=== PATIENT | male | born 1990 | race Caucasian/White ===

== ENCOUNTER 2016-12-21 21:38 | Emergency (ER) | payer BC ==
[2016-12-21] MEDS ORDERED: ASPIRIN 325 MG TAB PO STA (23:53)
[2016-12-22 00:30] LABS: Basophils # (A) 0.1 k/uL (0-0.2); Basophils % (A) 0 %; CH 30.7; CHCM 35.1; Eosinophils # (A) 0.3 k/uL (0-0.7); Eosinophils % (A) 3 %; HCT 41.9 % (39.0-53.0); HDW 2.92; HGB 14.2 gm/dL (13.0-17.5); Luc # (Auto) 0.22; Luc % (Auto) 2; Lymphocytes # (A) 3.7 k/uL (1.0-4.8); Lymphocytes % (A) 32 %; MCH 29.9 pg (25.0-35.0); MCV 87.9 fL (80.0-100.0); Mean Platelet Volume 6.6; Monocytes # (A) 0.5 k/uL (0-1.0); Monocytes % (A) 4 %; Neutrophils # (A) 6.8 k/uL (1.3-7.7); Neutrophils % (A) 59 %; RBC 4.77 m/uL (4.30-5.90); RDW 13.1 % (11.5-15.5); WBC 11.5 k/uL (3.8-10.6); WBC (Perox) 11.85
[2016-12-22 00:34] LABS: Anion Gap 14 mmol/L; Blood Urea Nitrogen 15 mg/dL (9-20); Calcium 9.6 mg/dL (8.4-10.2); Carbon Dioxide 22 mmol/L (22-30); Chloride 107 mmol/L (98-107); Glucose 78 mg/dL (74-99); Non-African American GFR(MDRD) >60 (>60 ml/min/1.73 sqM); Potassium 3.8 mmol/L (3.5-5.1); Sodium 143 mmol/L (137-145)
--- NOTE | 2016-12-22 00:38 | XR ---
EXAM: XR Chest, 2 Views. CLINICAL HISTORY: Reason: Chest pain TECHNIQUE: Frontal and lateral views of the chest. COMPARISON: No relevant prior studies available. FINDINGS: Lungs: Unremarkable. No consolidation. Pleural space: Unremarkable. No pneumothorax. Heart: Unremarkable. No cardiomegaly. Mediastinum: Unremarkable. Bones/joints: Unremarkable. IMPRESSION: Normal chest x-rays.
--- NOTE | 2016-12-22 00:43 | ED ---
General Adult HPI - General Chief complaint: Chest Pain Stated complaint: chest pain Source: patient Mode of arrival: ambulatory Limitations: no limitations - History of Present Illness Initial comments: 26-year-old male presented for evaluation of palpitations and epigastric discomfort that started suddenly this evening. 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 It continued to persist and were intense to the point where taking a deep inspiration was difficult. He comes this ED for further evaluation and states that his symptoms have decreased markedly and are barely noticeable at this point. He denies any chest pain, nausea, vomiting, fevers, chills, lightheadedness/ dizziness. - Related Data Home Medications Medication Instructions Recorded Confirmed Atorvastatin [Lipitor] 80 mg PO HS 12/21/16 12/21/16 Escitalopram [Lexapro] 10 mg PO HS 12/21/16 12/21/16 Escitalopram [Lexapro] 20 mg PO HS 12/21/16 12/21/16 Fenofibrate [Lofibra] 160 mg PO HS 12/21/16 12/21/16 Ibuprofen [Motrin] 600 mg PO Q6H PRN 12/21/16 12/21/16 Multivitamins, Thera [Multivitamin 1 tab PO HS 12/21/16 12/21/16 (formulary)] QUEtiapine FUMARATE [SEROquel] 25 mg PO HS 12/21/16 12/21/16 QUEtiapine FUMARATE [Seroquel Xr] 300 mg PO HS 12/21/16 12/21/16 busPIRone HCL 15 mg PO HS 12/21/16 12/21/16 Allergies Allergy/AdvReac Type Severity Reaction Status Date / Time Penicillins AdvReac Anaphylaxis Verified 12/21/16 23:15 sulfamethoxazole AdvReac Rash/Hives Verified 12/21/16 23:15 [From Bactrim] trimethoprim [From Bactrim] AdvReac Rash/Hives Verified 12/21/16 23:15 Review of Systems ROS Statement: Those systems with pertinent positive or pertinent negative responses have been documented in the HPI. ROS Other: All systems not noted in ROS Statement are negative. Constitutional: Denies: fever, chills Eyes: Denies: eye pain, eye discharge ENT: Denies: ear pain, throat pain Respiratory: Denies: cough, dyspnea, wheezes, hemoptysis Cardiovascular: Denies: chest pain, palpitations, dyspnea on exertion, orthopnea Gastrointestinal: Reports: abdominal pain (Epigastric). Denies: nausea, vomiting Genitourinary: Denies: urgency, dysuria Musculoskeletal: Denies: back pain, arthralgia, myalgia Skin: Denies: rash, lesions Neurological: Denies: headache, weakness Psychiatric: Denies: anxiety, depression Hematological/Lymphatic: Denies: easy bleeding, easy bruising Past Medical History Past Medical History: No Reported History History of Any Multi-Drug Resistant Organisms: None Reported Past Surgical History: No Surgical Hx Reported Past Psychological History: No Psychological Hx Reported, Anxiety, Depression Smoking Status: Never smoker Past Alcohol Use History: None Reported Past Drug Use History: None Reported General Exam Limitations: no limitations General appearance: alert, in no apparent distress Head exam: Present: atraumatic, normocephalic, normal inspection Eye exam: Present: normal appearance, PERRL, EOMI. Absent: scleral icterus, conjunctival injection, periorbital swelling ENT exam: Present: normal exam, mucous membranes moist Neck exam: Present: normal inspection. Absent: tenderness, meningismus, lymphadenopathy Respiratory exam: Present: normal lung sounds bilaterally. Absent: respiratory distress, wheezes, rales, rhonchi, stridor Cardiovascular Exam: Present: regular rate, normal rhythm, normal heart sounds. Absent: systolic murmur, diastolic murmur, rubs, gallop, clicks GI/Abdominal exam: Present: soft, normal bowel sounds. Absent: distended, tenderness, guarding, rebound, rigid Rectal exam: Present: deferred Extremities exam: Present: normal inspection, full ROM, normal capillary refill. Absent: tenderness, pedal edema, joint swelling, calf tenderness Back exam: Present: normal inspection Neurological exam: Present: alert, oriented X3, CN II-XII intact Psychiatric exam: Present: normal affect, normal mood Skin exam: Present: warm, dry, intact, normal color. Absent: rash Course Vital Signs 12/21/16 12/22/16 22:10 01:01 Temperature 97.9 F 98.6 F Pulse Rate 79 73 Respiratory 18 16 Rate Blood Pressure 128/77 130/88 O2 Sat by Pulse 99 97 Oximetry EKG Findings - EKG Comments: EKG Findings:: Normal sinus rhythm with a ventricular rate of 78, MILADYS 178, QRS 102, QT/QTC 390/444. Medical Decision Making - Medical Decision Making 26-year-old male presented for evaluation of palpitations and epigastric abdominal pain that started gradually while he was at work and continued to worsen. He states his symptoms are worse with deep inspiration eventually requiring him to rest and sit down. Symptoms have progressively resolved prior to coming to the ED. On physical examination the patient has no symptoms and his physical exam is benign. Labs revealed no significant abnormalities and the EKG showed no acute process as did the chest x-ray. The patient was informed of these results and through shared decision-making it was determined that he would be discharged with instructions to follow with his primary care physician but to return to this facility if his symptoms should worsen or persist. He acknowledged an understanding of this information and agreed with this plan of care. - Lab Data Result diagrams: 12/22/16 00:15 12/22/16 00:15 Lab Results 12/22/16 12/22/16 Range/Units 00:15 00:15 WBC 11.5 H (3.8-10.6) k/uL RBC 4.77 (4.30-5.90) m/uL Hgb 14.2 (13.0-17.5) gm/dL Hct 41.9 (39.0-53.0) % MCV 87.9 (80.0-100.0) fL MCH 29.9 (25.0-35.0) pg MCHC 34.0 (31.0-37.0) g/dL RDW 13.1 (11.5-15.5) % Plt Count 379 (150-450) k/uL Neutrophils % 59 % Lymphocytes % 32 % Monocytes % 4 % Eosinophils % 3 % Basophils % 0 % Neutrophils # 6.8 (1.3-7.7) k/uL Lymphocytes # 3.7 (1.0-4.8) k/uL Monocytes # 0.5 (0-1.0) k/uL Eosinophils # 0.3 (0-0.7) k/uL Basophils # 0.1 (0-0.2) k/uL Sodium 143 (137-145) mmol/L Potassium 3.8 (3.5-5.1) mmol/L Chloride 107 (98-107) mmol/L Carbon Dioxide 22 (22-30) mmol/L Anion Gap 14 mmol/L BUN 15 (9-20) mg/dL Creatinine 1.20 (0.66-1.25) mg/dL Est GFR (MDRD) Af Amer >60 (>60 ml/min/1.73 sqM) Est GFR (MDRD) Non-Af >60 (>60 ml/min/1.73 sqM) Glucose 78 (74-99) mg/dL Calcium 9.6 (8.4-10.2) mg/dL Disposition Clinical Impression: Epigastric pain, Palpitations Disposition: HOME SELF-CARE Condition: Stable Instructions: Abdominal Pain (ED), Chest Pain (ED) Referrals: Ye Bach MD [Primary Care Provider] - 1-2 days Time of Disposition: 00:43
[2016-12-22 01:09] VITALS: BP 130/88; PULSE 73; RESP 16; TEMP 98.6
== END 2016-12-22 01:03 | disposition home or self-care (01) ==
LOC: EC 21:38
DX: R10.13 Epigastric pain (principal); R00.2 Palpitations; R07.9 Chest pain, unspecified; F41.9 Anxiety disorder, unspecified; F32.9 Major depressive disorder, single episode, unspecified; Z79.899 Other long term (current) drug therapy; Z88.0 Allergy status to penicillin; Z88.2 Allergy status to sulfonamides
CPT/HCPCS: 36415; 71020; 80048; 85025; 93005; 99285

== ENCOUNTER 2017-12-08 22:10 | Observation (INO) | payer BC, OTHER ==
[2017-12-08] MEDS ORDERED: ONDANSETRON 4 MG/2 ML VIAL IVP STA (22:44)
[2017-12-08] MEDS ORDERED: PANTOPRAZOLE 40 MG/10 ML VIAL IVP STA (22:44)
[2017-12-08] MEDS ORDERED: SODIUM CHLORIDE 0.9% 1,000 ML IV STA (22:44)
--- NOTE | 2017-12-08 22:56 | ED ---
General Adult HPI - General Source: patient, RN notes reviewed Mode of arrival: ambulatory Limitations: no limitations <Rigo Valentin - Last Filed: 12/09/17 00:56> <Ankit Perez - Last Filed: 12/09/17 02:37> - General Chief complaint: Abdominal Pain Stated complaint: Abdominal Pain, NVD Time Seen by Provider: 12/08/17 22:34 - History of Present Illness Initial comments: Chief complaint history of present illness a 27-year-old male to complaint of her quadrant pain coming and going for the past 3 weeks. He reports he went to a local urgent care clinic and labs show an elevated bilirubin. For the last days been having nausea and vomiting. He continues the right upper quadrant pain. Denies fever. States his urine is darker than normal occasional loose stool. No antibiotics lately. (Rigo Valentin) - Related Data Home Medications Medication Instructions Recorded Confirmed Atorvastatin [Lipitor] 80 mg PO HS 12/21/16 12/08/17 Escitalopram [Lexapro] 10 mg PO HS 12/21/16 12/08/17 Escitalopram [Lexapro] 20 mg PO HS 12/21/16 12/08/17 QUEtiapine FUMARATE [SEROquel] 50 mg PO HS 12/21/16 12/08/17 QUEtiapine FUMARATE [Seroquel Xr] 300 mg PO HS 12/21/16 12/08/17 busPIRone HCL 7.5 mg PO BID 12/21/16 12/08/17 Gabapentin [Neurontin] 600 mg PO HS 12/08/17 12/08/17 Allergies Allergy/AdvReac Type Severity Reaction Status Date / Time Penicillins AdvReac Anaphylaxis Verified 12/08/17 22:27 sulfamethoxazole AdvReac Rash/Hives Verified 12/08/17 22:27 [From Bactrim] trimethoprim [From Bactrim] AdvReac Rash/Hives Verified 12/08/17 22:27 Review of Systems ROS Other: All systems not noted in ROS Statement are negative. <Rigo Valentin - Last Filed: 12/09/17 00:56> ROS Other: All systems not noted in ROS Statement are negative. <Ankit Perez - Last Filed: 12/09/17 02:37> ROS Statement: Those systems with pertinent positive or pertinent negative responses have been documented in the HPI. review of systems no headache or visual acuity changes no chest pain or shortness of breath. He has pain to the right upper quadrant that radiates around toward the right flank area. He reports eating causes pain. Nausea vomiting lately. No neuro deficits. All systems reviewed. Past medical problems none. Surgeries wisdom teeth. Family history multiple below gallbladder issues. No cancers. Patient has ALLERGIES to penicillin and sulfa. Patient using a cigarette. He drinks alcohol also rarely. (Rigo Valentin) Past Medical History Past Medical History: No Reported History History of Any Multi-Drug Resistant Organisms: None Reported Past Surgical History: No Surgical Hx Reported Past Psychological History: No Psychological Hx Reported, Anxiety, Depression Smoking Status: Never smoker Past Alcohol Use History: Rare Past Drug Use History: None Reported <Rigo Valentin - Last Filed: 12/09/17 00:56> General Exam Limitations: no limitations <Rigo Valentin - Last Filed: 12/09/17 00:56> <Ankit Perez - Last Filed: 12/09/17 02:37> - General Exam Comments Initial Comments: General: The patient is awake and alert, complain of biliary-type colic. He eatsthepaingetsworseespeciallybecausegreasyfattyfoods.Recentlybilirubinelevatedp eranoutsidelab.[id number] %[id number]/89. the patient was hydrated and blood pressure repeated, it was 125/80. Eye: Pupils are equal, round and reactive to light, extra-ocular movements are intact ; there is normal conjunctiva bilaterally. No signs of icterus. Ears, nose, mouth and throat: There are moist mucous membranes and no oral lesions. Neck: The neck is supple, there is no tenderness . Cardiovascular: There is a regular rate and rhythm. No murmur, rub or gallop is appreciated. Respiratory: Lungs are clear to auscultation, respirations are non-labored, breath sounds are equal. No wheezes, stridor, rales, or rhonchi. Gastrointestinal: tender with palpation to the right upper quadrant. Mild referred pain to the right upper quadrant. Positive Faith sign. Back: no back pain with palpation. Musculoskeletal: normal upper and lower extremities Neurological: no neuro deficits Skin: no rashes Psychiatric: Cooperative, (Rigo Valentin) Course <Rigo Valentin - Last Filed: 12/09/17 00:56> <Ankit Perez - Last Filed: 12/09/17 02:37> Vital Signs 12/08/17 12/09/17 12/09/17 22:18 01:03 02:00 Temperature 98.2 F Pulse Rate 100 79 94 Respiratory 20 20 18 Rate Blood Pressure 195/89 125/83 127/80 O2 Sat by Pulse 98 99 99 Oximetry Patient was reassessed at 2:30 AM, he reviewed his CT report with the patient CT report revealed that today in the region of firm right-sided retroperitoneum there is a large cystic mass that measures about 12 x 8 cm there is a minimal calcification at the margins no soft tissue component is visualized , vision has this pain ongoing for about a 4 weeks and it's interfering with his daily activities, his labs are reviewed the labs look unremarkable, I plan to admit him observation so he could see urology in the morning, he be admitted under Dr. Whiteheads service and the patient agrees with this plan, his pain is quite severe, we need to rule out any tumor (Ankit Perez) Medical Decision Making - Lab Data Result diagrams: 12/08/17 23:01 12/08/17 23:01 <Rigo Valentin - Last Filed: 12/09/17 00:56> - Lab Data Result diagrams: 12/08/17 23:01 12/08/17 23:01 <Ankit Perez - Last Filed: 12/09/17 02:37> - Medical Decision Making Medical decision making; the 27-year-old male here with rubber quadrant pain on again off again for 3 weeks. Nausea vomiting and loose stool. Pain is getting worse. Sees be aggravated by food. On exam positive Faith sign. Labs show white count 9.8 hemoglobin 14 hematocrit of 40 with a potassium 3.7. BUN 11 creatinine 1.1 with a GFR greater than 60. Glucose 99. Total bilirubin 1.0 which is normal. Amylase lipase normal limits. The patient reports he had labs done several weeks ago after his first attack and showed elevated bilirubin. Patient continues to have discomfort. X-ray of the abdomen was done and reviewed by radiologist his impression is there is no sign of intestinal obstruction or pneumoperitoneum. Fecal pattern is normal. There is no sign of a mass. There are no pathologic calcifications over the kidneys. Lung bases are clear. Fraction nonacute abdomen. As read by Dr. Sue Due to the patient's persistent discomfort, voluntary guarding, positive Faith' s and mild rebound pain to the right upper quadrant patient had CAT scan with IV and oral contrast. Final disposition will be determined by Dr. Perez ([facility]) - Lab Data Lab Results 12/08/17 12/08/17 12/08/17 Range/Units 23:01 23:01 23:01 WBC 9.8 (3.8-10.6) k/uL RBC 4.84 (4.30-5.90) m/uL Hgb 14.4 (13.0-17.5) gm/dL Hct 40.2 (39.0-53.0) % MCV 83.2 (80.0-100.0) fL MCH 29.7 (25.0-35.0) pg MCHC 35.7 (31.0-37.0) g/dL RDW 13.0 (11.5-15.5) % Plt Count 333 (150-450) k/uL Neutrophils % 64 % Lymphocytes % 28 % Monocytes % 5 % Eosinophils % 1 % Basophils % 0 % Neutrophils # 6.3 (1.3-7.7) k/uL Lymphocytes # 2.8 (1.0-4.8) k/uL Monocytes # 0.5 (0-1.0) k/uL Eosinophils # 0.1 (0-0.7) k/uL Basophils # 0.0 (0-0.2) k/uL Sodium 140 (137-145) mmol/L Potassium 3.7 (3.5-5.1) mmol/L Chloride 105 (98-107) mmol/L Carbon Dioxide 24 (22-30) mmol/L Anion Gap 11 mmol/L BUN 11 (9-20) mg/dL Creatinine 1.10 (0.66-1.25) mg/dL Est GFR (CKD-EPI)AfAm >90 (>60 ml/min/1.73 sqM) Est GFR (CKD-EPI)NonAf >90 (>60 ml/min/1.73 sqM) Glucose 99 (74-99) mg/dL Plasma Lactic Acid Isael 1.2 (0.7-2.0) mmol/L Calcium 9.9 (8.4-10.2) mg/dL Total Bilirubin 1.0 (0.2-1.3) mg/dL AST 30 (17-59) U/L ALT 50 (21-72) U/L Alkaline Phosphatase 131 H (38-126) U/L Total Protein 7.4 (6.3-8.2) g/dL Albumin 4.6 (3.5-5.0) g/dL Amylase 40 (30-110) U/L Lipase 66 (23-300) U/L Urine Color Urine Appearance (Clear) Urine pH (5.0-8.0) Ur Specific [place] (1.001-1.035) Urine Protein (Negative) Urine Glucose (UA) (Negative) Urine Ketones (Negative) Urine Blood (Negative) Urine Nitrite (Negative) Urine Bilirubin (Negative) Urine Urobilinogen (<2.0) mg/dL Ur Leukocyte Esterase (Negative) 12/09/17 Range/Units 00:57 WBC (3.8-10.6) k/uL RBC (4.30-5.90) m/uL Hgb (13.0-17.5) gm/dL Hct (39.0-53.0) % MCV (80.0-100.0) fL MCH (25.0-35.0) pg MCHC (31.0-37.0) g/dL RDW (11.5-15.5) % Plt Count (150-450) k/uL Neutrophils % % Lymphocytes % % Monocytes % % Eosinophils % % Basophils % % Neutrophils # (1.3-7.7) k/uL Lymphocytes # (1.0-4.8) k/uL Monocytes # (0-1.0) k/uL Eosinophils # (0-0.7) k/uL Basophils # (0-0.2) k/uL Sodium (137-145) mmol/L Potassium (3.5-5.1) mmol/L Chloride (98-107) mmol/L Carbon Dioxide (22-30) mmol/L Anion Gap mmol/L BUN (9-20) mg/dL Creatinine (0.66-1.25) mg/dL Est GFR (CKD-EPI)AfAm (>60 ml/min/1.73 sqM) Est GFR (CKD-EPI)NonAf (>60 ml/min/1.73 sqM) Glucose (74-99) mg/dL Plasma Lactic Acid [place]ael (0.7-2.0) mmol/L Calcium (8.4-10.2) mg/dL Total Bilirubin (0.2-1.3) mg/dL AST (17-59) U/L ALT (21-72) U/L Alkaline Phosphatase (38-126) U/L Total Protein (6.3-8.2) g/dL Albumin (3.5-5.0) g/dL Amylase (30-110) U/L Lipase (23-300) U/L Urine Color Yellow Urine Appearance Clear (Clear) Urine pH 6.0 (5.0-8.0) Ur Specific [place] 1.008 (1.001-1.035) Urine Protein Negative (Negative) Urine Glucose (UA) Negative (Negative) Urine Ketones Negative (Negative) Urine Blood Negative (Negative) Urine Nitrite Negative (Negative) Urine Bilirubin Negative (Negative) Urine Urobilinogen <2.0 (<2.0) mg/dL Ur Leukocyte Esterase Negative (Negative) Disposition <Rigo Valentin - Last Filed: 12/09/17 00:56> <Ankit Perez - Last Filed: 12/09/17 02:37> Clinical Impression: Multicystic dysplastic kidney Clinical Impression: (Ruled Out): Abdominal mass Disposition: ADMITTED IP TO THIS [facility] Condition: Good Referrals: Ye Bach MD [Primary Care Provider] - 1-2 days
[2017-12-08 23:22] LABS: ALT 50 U/L (21-72); AST 30 U/L (17-59); Albumin 4.6 g/dL (3.5-5.0); Alkaline Phosphatase 131 U/L (38-126); Amylase 40 U/L (30-110); Anion Gap 11 mmol/L; Blood Urea Nitrogen 11 mg/dL (9-20); Calcium 9.9 mg/dL (8.4-10.2); Carbon Dioxide 24 mmol/L (22-30); Chloride 105 mmol/L (98-107); Glucose 99 mg/dL (74-99); Lipase 66 U/L (23-300); Potassium 3.7 mmol/L (3.5-5.1); Sodium 140 mmol/L (137-145); Total Protein 7.4 g/dL (6.3-8.2)
[2017-12-08 23:30] LABS: Basophils % (A) 0 %; Eosinophils # (A) 0.1 k/uL (0-0.7); Eosinophils % (A) 1 %; HCT 40.2 % (39.0-53.0); HGB 14.4 gm/dL (13.0-17.5); Lymphocytes # (A) 2.8 k/uL (1.0-4.8); Lymphocytes % (A) 28 %; MCH 29.7 pg (25.0-35.0); MCHC 35.7 g/dL (31.0-37.0); MCV 83.2 fL (80.0-100.0); Mean Platelet Volume 7.5; Monocytes # (A) 0.5 k/uL (0-1.0); Monocytes % (A) 5 %; Neutrophils # (A) 6.3 k/uL (1.3-7.7); Neutrophils % (A) 64 %; Platelet Count 333 k/uL (150-450); RBC 4.84 m/uL (4.30-5.90); WBC 9.8 k/uL (3.8-10.6)
--- NOTE | 2017-12-08 23:33 | XR ---
EXAMINATION TYPE: XR abdomen 2V DATE OF EXAM: 12/08/2017 COMPARISON: NONE HISTORY: Abdominal pain TECHNIQUE: 3 views FINDINGS: There is no sign of intestinal obstruction or pneumoperitoneum. Fecal pattern is normal. Th ere is no sign of a mass. There are no pathologic calcifications over the kidneys. Lung bases are angelita ar. IMPRESSION: Nonacute abdomen.
[2017-12-08] MEDS ORDERED: IOHEXOL 350 MG/ML 25 ML BOTTLE (ORAL USE) PO PRN (23:54)
[2017-12-08] MEDS ORDERED: RX INFO: IV CONTRAST WAS GIVEN 1 EACH MISC MISCELLANE PRN (23:54)
[2017-12-09] MEDS ORDERED: KETOROLAC 30 MG/ML 1 ML VIAL IVP STA (00:56)
[2017-12-09 01:06] LABS: Appearance,Urine Clear (Clear); Bilirubin,Urine Negative (Negative); Blood,Urine Negative (Negative); Color,Urine Yellow; Glucose,Urine (UA) Negative (Negative); Ketones,Urine Negative (Negative); Leukocyte Esterase,Urine Negative (Negative); Nitrite,Urine Negative (Negative); Protein,Urine Negative (Negative); Specific Gravity,Urine 1.008 (1.001-1.035); Urobilinogen,Urine <2.0 mg/dL (<2.0)
--- NOTE | 2017-12-09 02:03 | CT ---
EXAMINATION TYPE: CT abdomen pelvis w con DATE OF EXAM: 12/09/2017 COMPARISON: NONE HISTORY: RUQ pain CT DLP: 1824.90 mGycm Automated exposure control for dose reduction was used. TECHNIQUE: Helical acquisition of images was performed from the lung bases through the pelvis. CONTRAST: Performed with Oral Contrast and with IV Contrast, patient injected with 100 mL of Omnipaque 300. FINDINGS: Lung bases are clear. There is no pleural effusion. Heart size is normal. Liver spleen pancreas gallbladder appear normal. Bile ducts are not dilated. The left kidney has norm al size and contour and normal contrast opacification. In the region of the right sided retroperitoneum there is a large cystic mass that measures 12 x 8 cm . There is minimal calcification at the margins. I see no soft tissue component. There is no retroperitoneal adenopathy. There is no ascites. Appendix appears normal. I see no intest inal wall thickening. There are no dilated loops. Bladder distends smoothly. There is no adrenal mass . The bony structures are intact. IMPRESSION: LARGE CYSTIC MASS IN THE ANTICIPATED REGION OF THE RIGHT KIDNEY IS PROBABLY DUE TO MULTICYSTIC DYSPLA STIC KIDNEY. LEFT KIDNEY APPEARS NORMAL WITH PROBABLY COMPENSATORY HYPERTROPHY. NORMAL APPENDIX. NO EVIDENCE OF A HERNIA. I DO NOT SEE A CAUSE FOR RIGHT LOWER QUADRANT PAIN.
[2017-12-09] MEDS ORDERED: NALOXONE 0.4 MG/ML 1 ML VIAL IV PRN (02:38)
[2017-12-09 03:23] VITALS: BMI 32.5
[2017-12-09] MEDS: MORPHINE SULFATE 4 MG/ML SYRINGE IV PRN ×3 (03:29→10:33)
[2017-12-09] MEDS: ONDANSETRON 4 MG/2 ML VIAL IVP PRN ×2 (03:34→17:38)
[2017-12-09] MEDS: QUEtiapine 50 MG TAB PO SCH ×2 (08:56→20:29)
[2017-12-09] MEDS: busPIRone HCl 5 MG TAB PO SCH ×2 (08:57→20:27)
--- NOTE | 2017-12-09 15:52 | HP ---
HISTORY AND PHYSICAL DATE OF ADMISSION: 12/09/2017 PRESENTING COMPLAINT: Abdominal pain, nausea. HISTORY OF PRESENTING COMPLAINT: This is a pleasant 27-year-old patient of Dr. Bach. Chronic stable medical conditions include hyperlipidemia, anxiety, depression. Patient for 3 to 4 weeks has been having slowly increasing abdominal pain, right upper quadrant and right flank area, he describes. Sometimes is is accompanied with nausea, vomiting. Patient did have a visit to the ER, and nothing was made out of it recently. Patient's pain has continued to get worse, including nausea, vomiting, and pain increased, and patient decided to come in. Denies any fever. No weight loss. Bowel pattern is normal. Patient was found to have a large cystic area on the right kidney and hence he is being admitted. Denies any fever. REVIEW OF SYSTEMS: CONSTITUTIONAL: Tired. HEENT: None. RESPIRATORY: None. CARDIOVASCULAR: None. GASTROINTESTINAL: As above. GENITOURINARY: None. MUSCULOSKELETAL: None. DERMATOLOGICAL: None. HEMATOLOGICAL: None. LYMPHATICS: None. PSYCHIATRY: Anxiety, depression. NEUROLOGICAL: None. PAST MEDICAL HISTORY: 1. Hyperlipidemia. 2. Anxiety. 3. Depression. PAST SURGICAL HISTORY: None. SOCIAL HISTORY: Lives with his aunt. Unemployed. Alcohol rarely. Denies smoking. FAMILY HISTORY: Gallstones. HOME MEDICATIONS: 1. Buspirone 7.5 p.o. b.i.d. 2. Seroquel XR 300 mg at bedtime. 3. Seroquel 50 mg p.o. at bedtime. 4. Neurontin 600 mg at bedtime. 5. Lexapro 30 mg p.o. at bedtime. 6. Lipitor 80 mg p.o. at bedtime. ALLERGIES: PENICILLIN and BACTRIM. PHYSICAL EXAMINATION: VITAL SIGNS ON PRESENTATION: Temperature 98.2, pulse 100, respiration 20. Blood pressure rechecked was 125/83, pulse ox 99% on room air. GENERAL APPEARANCE: Well built; BMI 32.5. Sitting up, slightly uncomfortable. EYES: Pupils equal. Conjunctivae normal. HEENT: External appearance of nose and ears normal. Oral cavity normal. NECK: JVD not raised. Mass not palpable. RESPIRATORY: Effort normal. Lungs are clear. CARDIOVASCULAR: First and second sounds normal. No edema. ABDOMEN: Right abdominal tenderness present. No guarding or rigidity. Not so much in renal angle. No mass palpable. Bowel sounds are present. LYMPHATIC: No lymph node palpable in neck or axillae. PSYCHIATRY: Alert and oriented x3. Mood and affect normal. NEUROLOGICAL: Pupils equal. Cranial nerves grossly intact. Power and sensation grossly intact. INVESTIGATIONS: White count 9.8, hemoglobin 14.4, potassium 3.7. BUN and creatinine are normal. UA is negative. Abdominal x-ray shows no signs of obstruction. CT scan of the abdomen and pelvis: right-sided retroperitoneal there is a large cystic mass measuring 12 x 8 cm with minimal calcification at the margins. No adenopathy. ASSESSMENT: 1. This is a patient who presents with a few days of increasing nausea, vomiting, not feeling well, right abdominal pain. Patient was found to have a 12 x 8 cm large cystic mass in the right kidney, multicystic. I am not sure if this explains all of his symptoms, and we still need at least urology and GI opinions. 2. Hyperlipidemia. 3. Anxiety not otherwise specified. 4. Depression not otherwise specified. PLAN: We will put the patient on a clear liquid diet. Home medications will be resumed. Consultation requests to GI and Urology are made. Care was discussed with the patient. We will put the patient on IV fluids. MMODL / IJN: [id number] /
[2017-12-09] MEDS: LACTATED RINGERS 1,000 ML IV SCH (17:15)
[2017-12-09] MEDS: ENOXAPARIN 40 MG/0.4 ML SYRINGE SQ SCH (17:15)
[2017-12-09] MEDS ORDERED: MORPHINE SULFATE 4 MG/ML SYRINGE IV ONE (17:45)
[2017-12-09] MEDS: MORPHINE ORAL SOLN 10 MG/5 ML CUP PO PRN (20:27)
[2017-12-09 20:57] VITALS: RESP 18
[2017-12-09] MEDS ORDERED: GABAPENTIN 300 MG CAP PO SCH (21:00)
[2017-12-09] MEDS ORDERED: ATORVASTATIN 80 MG TAB PO SCH (21:00)
[2017-12-09] MEDS ORDERED: ESCITALOPRAM 10 MG TAB PO SCH (21:00)
[2017-12-09] MEDS ORDERED: ESCITALOPRAM 20 MG TAB PO SCH (21:00)
[2017-12-09] MEDS ORDERED: QUEtiapine 50 MG TAB PO SCH (21:00)
[2017-12-10] MEDS: LACTATED RINGERS 1,000 ML IV SCH ×2 (02:47→11:59)
[2017-12-10] MEDS: MORPHINE ORAL SOLN 10 MG/5 ML CUP PO PRN (05:33)
[2017-12-10 09:05] VITALS: BP 123/84; PULSE 64; TEMP 97.8
[2017-12-10] MEDS: ENOXAPARIN 40 MG/0.4 ML SYRINGE SQ SCH (09:25)
[2017-12-10] MEDS: busPIRone HCl 5 MG TAB PO SCH (09:25)
[2017-12-10] MEDS: QUEtiapine 50 MG TAB PO SCH (09:25)
--- NOTE | 2017-12-10 10:58 | P.DS ---
Providers Date of admission: 12/09/17 02:38 Attending physician: Kam Torres Consults: 12/09/17 02:38 Consult Physician Stat Consulting Provider: Zeeshan Abrams Consult Reason/Comments: Multicycystic dysplastic kidney Do you want consulting provider notified?: Yes 12/09/17 11:08 Consult Physician Routine Consulting Provider: Anais Tabor Consult Reason/Comments: Abdominal Pain Do you want consulting provider notified?: Yes Primary care physician: Ye Bach [facility] Course: 27-year-old gentleman was admitted secondary to right-sided flank pain which was attributed to cyst in the region of the right kidney and absent right kidney. His pain improved. Patient was having nausea vomiting probably related to gastritis. Considering his unilateral kidney patient will not be started on proton pump inhibitor instead was started on Zantac. We'll advance the diet if he is able to tolerate the diet patient will be discharged today to follow with primary care physician Dr. Castillo and the urologist in [facility]. For rest of the other chronic medical problems please refer to Dr. Torres dictation of H&P from yesterday. Patient Condition at Discharge: Good Plan - Discharge Summary New Discharge Prescriptions: New Ranitidine HCl [Zantac] 150 mg PO BID #30 tab No Action Atorvastatin [Lipitor] 80 mg PO HS busPIRone HCL 7.5 mg PO BID Escitalopram [Lexapro] 20 mg PO HS Escitalopram [Lexapro] 10 mg PO HS QUEtiapine FUMARATE [Seroquel Xr] 300 mg PO HS QUEtiapine FUMARATE [SEROquel] 50 mg PO HS Gabapentin [Neurontin] 600 mg PO HS Discharge Medication List Atorvastatin [Lipitor] 80 mg PO HS 12/21/16 [History] Escitalopram [Lexapro] 10 mg PO HS 12/21/16 [History] Escitalopram [Lexapro] 20 mg PO HS 12/21/16 [History] QUEtiapine FUMARATE [SEROquel] 50 mg PO HS 12/21/16 [History] QUEtiapine FUMARATE [Seroquel Xr] 300 mg PO HS 12/21/16 [History] busPIRone HCL 7.5 mg PO BID 12/21/16 [History] Gabapentin [Neurontin] 600 mg PO HS 12/08/17 [History] Ranitidine HCl [Zantac] 150 mg PO BID #30 tab 12/10/17 [Rx] Follow up Appointment(s)/Referral(s): Ye Bach MD [Primary Care Provider] - 3 Days Discharge Disposition: HOME SELF-CARE
[2017-12-10] MEDS ORDERED: FAMOTIDINE 20 MG TAB PO STA (11:00)
--- NOTE | 2017-12-10 11:15 | P.GSCN ---
History of Present Illness Consult date: 12/09/17 Reason for Consult: Right multicystic dysplastic kidney. Requesting physician: Kam Torres History of present illness: The patient is a 27-year-old white male with an unremarkable urologic history. He presents with a several week history of nausea, vomiting, and diarrhea. He has recently experienced right-sided abdominal pain, radiating to the right flank. He denies gross hematuria. Review of Systems - Constitutional Denies chills, Denies fever - Gastrointestinal Reports diarrhea, Reports nausea, Reports vomiting - Genitourinary Denies dysuria, Denies hematuria Past Medical History Past Medical History: Hyperlipidemia History of Any Multi-Drug Resistant Organisms: None Reported Past Surgical History: No Surgical Hx Reported Additional Past Surgical History / Comment(s): [place] teeth removed Past Anesthesia/Blood Transfusion Reactions: No Reported Reaction Smoking Status: Former smoker - Past Family History Mother Additional Family Medical History / Comment(s): Gallstones Father Family Medical History: No Reported History Medications and Allergies Home Medications Medication Instructions Recorded Confirmed Type Atorvastatin [Lipitor] 80 mg PO HS 12/21/16 12/09/17 History Escitalopram [Lexapro] 10 mg PO HS 12/21/16 12/09/17 History Escitalopram [Lexapro] 20 mg PO HS 12/21/16 12/09/17 History QUEtiapine FUMARATE [SEROquel] 50 mg PO HS 12/21/16 12/09/17 History QUEtiapine FUMARATE [Seroquel Xr] 300 mg PO HS 12/21/16 12/09/17 History busPIRone HCL 7.5 mg PO BID 12/21/16 12/09/17 History Gabapentin [Neurontin] 600 mg PO HS 12/08/17 12/09/17 History Ranitidine HCl [Zantac] 150 mg PO BID #30 tab 12/10/17 Rx Allergies Allergy/AdvReac Type Severity Reaction Status Date / Time Penicillins AdvReac Anaphylaxis Verified 12/09/17 03:12 sulfamethoxazole AdvReac Rash/Hives Verified 12/09/17 03:12 [From Bactrim] trimethoprim [From Bactrim] AdvReac Rash/Hives Verified 12/09/17 03:12 Surgical - Exam Vital Signs Temp Pulse Resp BP Pulse Ox 98.2 F 100 20 195/89 98 12/08/17 22:18 12/08/17 22:18 12/08/17 22:18 12/08/17 22:18 12/08/17 22:18 - General well developed, well nourished, no distress - Respiratory normal respiratory effort - Abdomen Abdomen: soft, tender (Mild right upper quadrant tenderness), no masses, no guarding, no rigid, no rebound - Genitourinary normal penis with no external lesions, testicles non-tender - Psychiatric oriented to time, oriented to person, oriented to place, speech is normal, memory intact Results - Labs 12/08/17 23:01 12/08/17 23:01 Abnormal Lab Results - Last 24 Hours (Table) 12/08/17 Range/Units 23:01 Alkaline Phosphatase 131 H (38-126) U/L Diabetes panel 12/08/17 Range/Units 23:01 Sodium 140 (137-145) mmol/L Potassium 3.7 (3.5-5.1) mmol/L Chloride 105 (98-107) mmol/L Carbon Dioxide 24 (22-30) mmol/L BUN 11 (9-20) mg/dL Creatinine 1.10 (0.66-1.25) mg/dL Glucose 99 (74-99) mg/dL Calcium 9.9 (8.4-10.2) mg/dL AST 30 (17-59) U/L ALT 50 (21-72) U/L Alkaline Phosphatase 131 H (38-126) U/L Total Protein 7.4 (6.3-8.2) g/dL Albumin 4.6 (3.5-5.0) g/dL Calcium panel 12/08/17 Range/Units 23:01 Calcium 9.9 (8.4-10.2) mg/dL Albumin 4.6 (3.5-5.0) g/dL Pituitary panel 12/08/17 Range/Units 23:01 Sodium 140 (137-145) mmol/L Potassium 3.7 (3.5-5.1) mmol/L Chloride 105 (98-107) mmol/L Carbon Dioxide 24 (22-30) mmol/L BUN 11 (9-20) mg/dL Creatinine 1.10 (0.66-1.25) mg/dL Glucose 99 (74-99) mg/dL Calcium 9.9 (8.4-10.2) mg/dL Adrenal panel 12/08/17 Range/Units 23:01 Sodium 140 (137-145) mmol/L Potassium 3.7 (3.5-5.1) mmol/L Chloride 105 (98-107) mmol/L Carbon Dioxide 24 (22-30) mmol/L BUN 11 (9-20) mg/dL Creatinine 1.10 (0.66-1.25) mg/dL Glucose 99 (74-99) mg/dL Calcium 9.9 (8.4-10.2) mg/dL Total Bilirubin 1.0 (0.2-1.3) mg/dL AST 30 (17-59) U/L ALT 50 (21-72) U/L Alkaline Phosphatase 131 H (38-126) U/L Total Protein 7.4 (6.3-8.2) g/dL Albumin 4.6 (3.5-5.0) g/dL - Imaging CT scan - abdomen: report reviewed, image reviewed Assessment and Plan (1) Multicystic dysplastic kidney Current Visit: Yes Status: Acute Code(s): Q61.4 - RENAL DYSPLASIA SNOMED Code(s): 66218705 Plan: I had a lengthy discussion with the patient and his aunt. 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 Given that this is a congenital anomaly, and he has experienced symptoms for only several weeks, I am somewhat doubtful that this is the etiology of his symptoms. Furthermore, one would not expect a renal anomaly to cause GI symptoms, particularly diarrhea. Ultimately, if another source of his symptoms is not identified, he may benefit from a laparoscopic right nephrectomy. However, he understands that there is no guarantee that this would result in symptomatic resolution. Time with Patient: Greater than 30
--- NOTE | 2017-12-10 11:16 | P.PN ---
Progress Note - Text Progress Note Date: 12/10/17 Mr. azar is feeling better today. He currently denies nausea and diarrhea. His pain is improved. He is interested in undergoing removal of his anomalous right kidney. I explained to him that I would recommend this be done only if he remains symptomatic, and another etiology of his symptoms is not identified. He has indicated he would like it removed in any case. I suggested that this would best be performed laparoscopically, and he will follow up as needed.
== END 2017-12-10 13:42 | disposition home or self-care (01) ==
LOC: EC 22:10 → 3OBS 12-09 02:38
PROVIDERS: ADMIT Hospitalist; ATTEND Hospitalist
DX: Q61.4 Renal dysplasia (principal); Q60.0 Renal agenesis, unilateral; R17 Unspecified jaundice; R19.7 Diarrhea, unspecified; R11.2 Nausea with vomiting, unspecified; E78.5 Hyperlipidemia, unspecified; F32.9 Major depressive disorder, single episode, unspecified; F41.9 Anxiety disorder, unspecified; N28.89 Other specified disorders of kidney and ureter; Z79.899 Other long term (current) drug therapy; Z88.0 Allergy status to penicillin; Z88.2 Allergy status to sulfonamides; Z87.891 Personal history of nicotine dependence
CPT/HCPCS: 99285 ×2; 96374 ×2; 96375 ×5; 96372 ×2; 96376; 36415; 80053; 82150; 83605; 83690; 85025; 81003; 74019; 74177; G0378 ×2; J2270; J2405 ×2; J1650 ×2; J1885; Q9967; C9113

== ENCOUNTER 2017-12-29 17:54 | Emergency (ER) | payer OTHER ==
[2017-12-29] MEDS ORDERED: SODIUM CHLORIDE 0.9% 1,000 ML IV STA (18:33)
[2017-12-29] MEDS ORDERED: MORPHINE SULFATE 4MG/4ML SYRG IV STA (18:33)
[2017-12-29] MEDS ORDERED: PANTOPRAZOLE 40 MG/10 ML VIAL IVP STA (18:33)
[2017-12-29] MEDS ORDERED: ONDANSETRON 4 MG/2 ML VIAL IVP STA (18:33)
--- NOTE | 2017-12-29 18:35 | ED ---
Nausea/Vomiting/Diarrhea HPI - General Chief complaint: Nausea/Vomiting/Diarrhea Stated complaint: NVD Time Seen by Provider: 12/29/17 18:07 Source: patient, RN notes reviewed, old records reviewed Mode of arrival: ambulatory Limitations: no limitations - History of Present Illness Initial comments: This patient is a 27-year-old male with history of right cystic kidney presents emergency Department chief complaint of 1 day of intractable nausea and vomiting. Said a couple episodes of diarrhea today. He complains of some right -sided abdominal pain which has been similar to all of his previous pain related to a cyst. Patient reports he is scheduled to have surgery for the cyst removal on January 25. He reports that his urologist is Dr. Hermosillo at [facility]. He states that he's had no fevers or chills. He denies any chest pain or shortness breath. He reports has not been able to tolerate his medications. He did take 1 Zofran prior to coming here but he did vomit that up as well. - Related Data Home Medications Medication Instructions Recorded Confirmed Atorvastatin [Lipitor] 80 mg PO HS 12/21/16 12/29/17 Escitalopram [Lexapro] 10 mg PO HS 12/21/16 12/29/17 Escitalopram [Lexapro] 20 mg PO HS 12/21/16 12/29/17 QUEtiapine FUMARATE [SEROquel] 50 mg PO HS 12/21/16 12/29/17 QUEtiapine FUMARATE [Seroquel Xr] 300 mg PO HS 12/21/16 12/29/17 busPIRone HCL 7.5 mg PO BID 12/21/16 12/29/17 Gabapentin [Neurontin] 600 mg PO HS 12/08/17 12/29/17 Gabapentin [Neurontin] 300 mg PO TID 12/29/17 12/29/17 Previous Rx's Medication Instructions Recorded Ranitidine HCl [Zantac] 150 mg PO BID #30 tab 12/10/17 Ondansetron Odt [Zofran Odt] 4 mg PO Q8HR PRN #12 tab 12/29/17 Allergies Allergy/AdvReac Type Severity Reaction Status Date / Time Penicillins Allergy Anaphylaxis Verified 12/29/17 18:43 Sulfa (Sulfonamide Allergy Rash/Hives Verified 12/29/17 18:43 Antibiotics) sulfamethoxazole Allergy Rash/Hives Verified 12/29/17 18:43 [From Bactrim] trimethoprim [From Bactrim] Allergy Rash/Hives Verified 12/29/17 18:43 Review of Systems ROS Statement: Those systems with pertinent positive or pertinent negative responses have been documented in the HPI. ROS Other: All systems not noted in ROS Statement are negative. Past Medical History Past Medical History: Hyperlipidemia History of Any Multi-Drug Resistant Organisms: None Reported Past Surgical History: No Surgical Hx Reported Additional Past Surgical History / Comment(s): [place] teeth removed Past Anesthesia/Blood Transfusion Reactions: No Reported Reaction Past Psychological History: Anxiety, Depression Smoking Status: Former smoker Past Alcohol Use History: Occasional Past Drug Use History: None Reported - Past Family History Mother Additional Family Medical History / Comment(s): Gallstones Father Family Medical History: No Reported History General Exam - General Exam Comments Initial Comments: This is a 27-year-old male. Patient appears in moderate discomfort. Limitations: no limitations General appearance: alert, in no apparent distress Head exam: Present: atraumatic, normocephalic, normal inspection Eye exam: Present: normal appearance, PERRL, EOMI. Absent: scleral icterus, conjunctival injection, periorbital swelling ENT exam: Present: normal exam, mucous membranes moist Neck exam: Present: normal inspection. Absent: tenderness, meningismus, lymphadenopathy Respiratory exam: Present: normal lung sounds bilaterally. Absent: respiratory distress, wheezes, rales, rhonchi, stridor Cardiovascular Exam: Present: regular rate, normal rhythm, normal heart sounds. Absent: systolic murmur, diastolic murmur, rubs, gallop, clicks GI/Abdominal exam: Present: soft, tenderness (Right lower quadrant and left lower quadrant tenderness.), normal bowel sounds. Absent: distended, guarding, rebound, rigid Extremities exam: Present: normal inspection, full ROM, normal capillary refill. Absent: tenderness, pedal edema, joint swelling, calf tenderness Back exam: Present: normal inspection Neurological exam: Present: alert, oriented X3, CN II-XII intact Psychiatric exam: Present: normal affect, normal mood Skin exam: Present: warm, dry, intact, normal color. Absent: rash Course Vital Signs 12/29/17 18:05 Temperature 98.5 F Pulse Rate 89 Respiratory 18 Rate Blood Pressure 138/83 O2 Sat by Pulse 98 Oximetry - Reevaluation(s) Reevaluation #1: 12/29/17 21:49 She was reevaluated after seeing more fluids. He is nontender. Pain is been chronic liters to assist. Discussed that a CT on pelvis was reviewed and normal. Discussed that the white blood cell count is likely elevated due to his vomiting and dry heaving. Discussion is follow-up with his primary care provider tomorrow for recheck blood work and testing. Discussed return parameters. Medical Decision Making - Medical Decision Making This patient is a 27-year-old male present emergency Department chief complaint of draining episodes and some abdominal pain. Use otherwise feeling well yesterday. Patient's labwork was reviewed and it showed elevated white blood count 19,000. He is afebrile. With it is some right lower quadrant left lower quadrant tenderness. Did have 2 episodes of diarrhea today too. Patient underwent CT abdomen and pelvis. CT of pelvis does show the renal cyst which is stable. No other abnormality's. No appendicitis or diverticulitis colitis. Patient informed of these results. Discussed this with both LIKELY related to the dry heaving. His nausea subsided he reports he otherwise feels somewhat better to go home. Discussed clear liquid diet for the next 2 days. Discussed follow-up with primary care provider for repeat testing in 1 day. - Lab Data Result diagrams: 12/29/17 18:45 12/29/17 18:45 Lab Results 12/29/17 12/29/17 12/29/17 Range/Units 18:45 18:45 18:45 WBC 19.1 H (3.8-10.6) k/uL RBC 5.28 (4.30-5.90) m/uL Hgb 15.9 (13.0-17.5) gm/dL Hct 44.5 (39.0-53.0) % MCV 84.2 (80.0-100.0) fL MCH 30.2 (25.0-35.0) pg MCHC 35.8 (31.0-37.0) g/dL RDW 13.1 (11.5-15.5) % Plt Count 450 (150-450) k/uL Neutrophils % 82 % Lymphocytes % 13 % Monocytes % 4 % Eosinophils % 1 % Basophils % 0 % Neutrophils # 15.6 H (1.3-7.7) k/uL Lymphocytes # 2.4 (1.0-4.8) k/uL Monocytes # 0.7 (0-1.0) k/uL Eosinophils # 0.2 (0-0.7) k/uL Basophils # 0.1 (0-0.2) k/uL Hyperchromasia Slight PT 9.8 (9.0-12.0) sec INR 1.0 (<1.2) APTT 21.4 L (22.0-30.0) sec Sodium 145 (137-145) mmol/L Potassium 4.6 (3.5-5.1) mmol/L Chloride 108 H (98-107) mmol/L Carbon Dioxide 16 L (22-30) mmol/L Anion Gap 21 mmol/L BUN 15 (9-20) mg/dL Creatinine 1.20 (0.66-1.25) mg/dL Est GFR (CKD-EPI)AfAm >90 (>60 ml/min/1.73 sqM) Est GFR (CKD-EPI)NonAf 81 (>60 ml/min/1.73 sqM) Glucose 96 (74-99) mg/dL Calcium 10.7 H (8.4-10.2) mg/dL Total Bilirubin 0.7 (0.2-1.3) mg/dL AST 34 (17-59) U/L ALT 65 (21-72) U/L Alkaline Phosphatase 155 H (38-126) U/L Total Protein 8.3 H (6.3-8.2) g/dL Albumin 5.1 H (3.5-5.0) g/dL Amylase 55 (30-110) U/L Lipase 54 (23-300) U/L Urine Color Urine Appearance (Clear) Urine pH (5.0-8.0) Ur Specific Olga (1.001-1.035) Urine Protein (Negative) Urine Glucose (UA) (Negative) Urine Ketones (Negative) Urine Blood (Negative) Urine Nitrite (Negative) Urine Bilirubin (Negative) Urine Urobilinogen (<2.0) mg/dL Ur Leukocyte Esterase (Negative) Urine RBC (0-5) /hpf Urine WBC (0-5) /hpf Ur Squamous Epith Cells (0-4) /hpf Urine Bacteria (None) /hpf Hyaline Casts (0-2) /lpf Urine Mucus (None) /hpf 12/29/17 Range/Units 18:54 WBC (3.8-10.6) k/uL RBC (4.30-5.90) m/uL Hgb (13.0-17.5) gm/dL Hct (39.0-53.0) % MCV (80.0-100.0) fL MCH (25.0-35.0) pg MCHC (31.0-37.0) g/dL RDW (11.5-15.5) % Plt Count (150-450) k/uL Neutrophils % % Lymphocytes % % Monocytes % % Eosinophils % % Basophils % % Neutrophils # (1.3-7.7) k/uL Lymphocytes # (1.0-4.8) k/uL Monocytes # (0-1.0) k/uL Eosinophils # (0-0.7) k/uL Basophils # (0-0.2) k/uL Hyperchromasia PT (9.0-12.0) sec INR (<1.2) APTT (22.0-30.0) sec Sodium (137-145) mmol/L Potassium (3.5-5.1) mmol/L Chloride (98-107) mmol/L Carbon Dioxide (22-30) mmol/L Anion Gap mmol/L BUN (9-20) mg/dL Creatinine (0.66-1.25) mg/dL Est GFR (CKD-EPI)AfAm (>60 ml/min/1.73 sqM) Est GFR (CKD-EPI)NonAf (>60 ml/min/1.73 sqM) Glucose (74-99) mg/dL Calcium (8.4-10.2) mg/dL Total Bilirubin (0.2-1.3) mg/dL AST (17-59) U/L ALT (21-72) U/L Alkaline Phosphatase (38-126) U/L Total Protein (6.3-8.2) g/dL Albumin (3.5-5.0) g/dL Amylase (30-110) U/L Lipase (23-300) U/L Urine Color Yellow Urine Appearance Cloudy (Clear) Urine pH 5.5 (5.0-8.0) Ur Specific Olga 1.025 (1.001-1.035) Urine Protein 1+ H (Negative) Urine Glucose (UA) Negative (Negative) Urine Ketones Negative (Negative) Urine Blood Trace H (Negative) Urine Nitrite Negative (Negative) Urine Bilirubin Negative (Negative) Urine Urobilinogen <2.0 (<2.0) mg/dL Ur Leukocyte Esterase Trace H (Negative) Urine RBC 3 (0-5) /hpf Urine WBC 11 H (0-5) /hpf Ur Squamous Epith Cells 2 (0-4) /hpf Urine Bacteria Rare H (None) /hpf Hyaline Casts 23 H (0-2) /lpf Urine Mucus Many H (None) /hpf - Radiology Data Radiology results: report reviewed CT abdomen shows no acute abdominal process. Congenital abnormal right kidney replaced with a cystic structure. Disposition Clinical Impression: Multicystic dysplastic kidney, Nausea & vomiting Disposition: HOME SELF-CARE Condition: Good Instructions: Acute Nausea and Vomiting (ED) Additional Instructions: Patient advised to follow-up promptly with primary care provider. Clear liquid diet. Return to emergency department if any alarming signs or symptoms occur. Admitted repeat her blood work with primary care provider within the next 1-2 days. Prescriptions: Ondansetron Odt [Zofran Odt] 4 mg PO Q8HR PRN #12 tab PRN Reason: Nausea Referrals: Ye Bach MD [Primary Care Provider] - 1-2 days Time of Disposition: 21:51
[2017-12-29 18:56] LABS: Basophils # (A) 0.1 k/uL (0-0.2); Basophils % (A) 0 %; Eosinophils # (A) 0.2 k/uL (0-0.7); Eosinophils % (A) 1 %; HCT 44.5 % (39.0-53.0); HGB 15.9 gm/dL (13.0-17.5); Hyperchromasia Slight; Lymphocytes # (A) 2.4 k/uL (1.0-4.8); Lymphocytes % (A) 13 %; MCH 30.2 pg (25.0-35.0); MCHC 35.8 g/dL (31.0-37.0); MCV 84.2 fL (80.0-100.0); Mean Platelet Volume 6.9; Monocytes # (A) 0.7 k/uL (0-1.0); Monocytes % (A) 4 %; Neutrophils # (A) 15.6 k/uL (1.3-7.7); Neutrophils % (A) 82 %; Platelet Count 450 k/uL (150-450); RBC 5.28 m/uL (4.30-5.90); RDW 13.1 % (11.5-15.5); WBC 19.1 k/uL (3.8-10.6)
[2017-12-29 19:08] LABS: ALT 65 U/L (21-72); AST 34 U/L (17-59); Albumin 5.1 g/dL (3.5-5.0); Alkaline Phosphatase 155 U/L (38-126); Amylase 55 U/L (30-110); Anion Gap 21 mmol/L; Blood Urea Nitrogen 15 mg/dL (9-20); Calcium 10.7 mg/dL (8.4-10.2); Carbon Dioxide 16 mmol/L (22-30); Chloride 108 mmol/L (98-107); Glucose 96 mg/dL (74-99); Lipase 54 U/L (23-300); Potassium 4.6 mmol/L (3.5-5.1); Sodium 145 mmol/L (137-145); Total Bilirubin 0.7 mg/dL (0.2-1.3); Total Protein 8.3 g/dL (6.3-8.2)
[2017-12-29 19:11] LABS: Partial Thromboplastin Time 21.4 sec (22.0-30.0); Prothrombin Time 9.8 sec (9.0-12.0)
[2017-12-29 19:16] LABS: Appearance,Urine Cloudy (Clear); Bacteria,Urine Rare /hpf; Bilirubin,Urine Negative (Negative); Blood,Urine Trace (Negative); Color,Urine Yellow; Glucose,Urine (UA) Negative (Negative); Hyaline Casts,Urine 23 /lpf (0-2); Ketones,Urine Negative (Negative); Leukocyte Esterase,Urine Trace (Negative); Mucus,Urine Many /hpf; Nitrite,Urine Negative (Negative); PH, Urine 5.5 (5.0-8.0); Protein,Urine 1+ (Negative); RBC,Urine 3 /hpf (0-5); Specific Gravity,Urine 1.025 (1.001-1.035); Squamous Epithelial Cell,Urine 2 /hpf (0-4); Urobilinogen,Urine <2.0 mg/dL (<2.0); WBC,Urine 11 /hpf (0-5)
[2017-12-29] MEDS ORDERED: RX INFO: IV CONTRAST WAS GIVEN 1 EACH MISC MISCELLANE PRN (19:20)
--- NOTE | 2017-12-29 20:08 | CT ---
EXAMINATION TYPE: CT abdomen pelvis w con DATE OF EXAM: 12/29/2017 COMPARISON: NONE INDICATION: Nausea, vomiting and diarrhea DLP: 1684 mGycm, Automated exposure control for dose reduction was used. CONTRAST: 100 mL of Isovue 300. Study performed without Oral Contrast TECHNIQUE: Axial images were obtained from above the diaphragm to the pubic rami in the axial plane a t 5 mm thick sections. Reconstructed images are reviewed on the computer in the coronal plane. FINDINGS: Limited CT sections are obtained the lung bases. The lung bases are clear. CT ABDOMEN: Liver: Normal Spleen: Normal Pancreas: Normal Adrenal glands: The adrenal glands are normal. Gallbladder: Normal Kidneys: Right kidney appears to be essentially absent. This is replaced by a large cystlike structur e measuring 8.6 cm and 0 Hounsfield units. Left kidney appears normal without masses cysts or hydrone phrosis. No renal stones are identified. Delayed images obtained through the kidney which appears unr emarkable. Aorta: Normal Inferior vena cava: Normal. CT PELVIS: Loops of bowel within the abdomen and pelvis are normal. There are loops of bowel which are incom pletely distended or lack oral contrast limiting their evaluation. Appendix: Normal as visualized. Urinary bladder: Normal. Genitourinary structures: Prostate is slightly prominent Osseous structures: No suspicious lytic or sclerotic lesions. IMPRESSIONS: 1. No acute abdominal process. 2. Congenitally abnormal right kidney replaced with a cystic structure.
[2017-12-29] MEDS ORDERED: SODIUM CHLORIDE 0.9% 1,000 ML IV ONE (20:55)
[2017-12-29] MEDS ORDERED: KETOROLAC 30 MG/ML 1 ML VIAL IVP STA (20:55)
[2017-12-29] MEDS ORDERED: ONDANSETRON 4 MG ODT STARTER PACK 2 TAB BTL PO STA (21:57)
[2017-12-29 22:35] VITALS: RESP 16
[2017-12-29 22:37] VITALS: BP 132/80; PULSE 82; TEMP 98.7
== END 2017-12-29 22:36 | disposition home or self-care (01) ==
LOC: EC 17:54
DX: Q61.4 Renal dysplasia (principal); R11.2 Nausea with vomiting, unspecified; R19.7 Diarrhea, unspecified; R10.31 Right lower quadrant pain; R10.32 Left lower quadrant pain; E78.5 Hyperlipidemia, unspecified; F32.9 Major depressive disorder, single episode, unspecified; F41.9 Anxiety disorder, unspecified; Z87.891 Personal history of nicotine dependence; Z79.899 Other long term (current) drug therapy; Z88.0 Allergy status to penicillin; Z88.2 Allergy status to sulfonamides
CPT/HCPCS: 36415; 80053; 82150; 83690; 85025; 85610; 85730; 81001; 74177; 99285; 96374; 96375 ×3; 96361 ×2; J2405; J1885; S0119; C9113; Q9967; J2270

== ENCOUNTER 2019-06-30 10:00 | Emergency (ER) | payer OTHER ==
[2019-06-30 10:08] VITALS: TEMP 98
[2019-06-30] MEDS ORDERED: IPRATROPIUM-ALBUTEROL 3 ML NEB INHALATION STA (10:13)
--- NOTE | 2019-06-30 10:15 | ED ---
URI HPI - General Chief Complaint: Upper Respiratory Infection Stated Complaint: congestion, SOB Time Seen by Provider: 06/30/19 10:10 Source: patient, RN notes reviewed Mode of arrival: ambulatory Limitations: no limitations - History of Present Illness Initial Comments: 29-year-old male presents emergency Department chief complaint of cough congestion shortness of breath. Patient has been sick for last 1 week. Patient states it initially started nasal congestion. Patient states he has a productive cough at this time. Patient states he feels short of breath he does admit that he uses in a cigarette butt denies any tobacco use. Patient states nasal congestion has improved states that he does feel short of breath. No history of asthma. Patient denies any [id number] cough and cold medications. - Related Data Home Medications Medication Instructions Recorded Confirmed Atorvastatin [Lipitor] 80 mg PO HS 12/21/16 12/29/17 Escitalopram [Lexapro] 10 mg PO HS 12/21/16 12/29/17 Escitalopram [Lexapro] 20 mg PO HS 12/21/16 12/29/17 QUEtiapine FUMARATE [SEROquel] 50 mg PO HS 12/21/16 12/29/17 QUEtiapine FUMARATE [Seroquel Xr] 300 mg PO HS 12/21/16 12/29/17 busPIRone HCL 7.5 mg PO BID 12/21/16 12/29/17 Gabapentin [Neurontin] 600 mg PO HS 12/08/17 12/29/17 Gabapentin [Neurontin] 300 mg PO TID 12/29/17 12/29/17 Previous Rx's Medication Instructions Recorded Ranitidine HCl [Zantac] 150 mg PO BID #30 tab 12/10/17 Ondansetron Odt [Zofran Odt] 4 mg PO Q8HR PRN #12 tab 12/29/17 Albuterol Sulfate [Proair Hfa] 1 - 2 puff INHALATION Q4HR PRN #1 06/30/19 inhaler Azithromycin [Zithromax Z-pack] 0 mg PO DIRECTED #1 pack 06/30/19 predniSONE 50 mg PO DAILY #5 tab 06/30/19 Allergies Allergy/AdvReac Type Severity Reaction Status Date / Time Penicillins Allergy Anaphylaxis Verified 12/29/17 18:43 Sulfa (Sulfonamide Allergy Rash/Hives Verified 12/29/17 18:43 Antibiotics) sulfamethoxazole Allergy Rash/Hives Verified 12/29/17 18:43 [From Bactrim] trimethoprim [From Bactrim] Allergy Rash/Hives Verified 12/29/17 18:43 Review of Systems ROS Statement: Those systems with pertinent positive or pertinent negative responses have been documented in the HPI. ROS Other: All systems not noted in ROS Statement are negative. 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 History of Any Multi-Drug Resistant Organisms: None Reported Past Surgical History: No Surgical Hx Reported Additional Past Surgical History / Comment(s): [place] teeth removed, right nephrectomy Past Anesthesia/Blood Transfusion Reactions: No Reported Reaction Past Psychological History: Anxiety, Depression Smoking Status: Former smoker Past Alcohol Use History: Occasional Past Drug Use History: None Reported - Past Family History Mother Additional Family Medical History / Comment(s): Gallstones Father Family Medical History: No Reported History General Exam Limitations: no limitations General appearance: alert, in no apparent distress Head exam: Present: atraumatic, normocephalic, normal inspection Eye exam: Present: normal appearance, PERRL, EOMI. Absent: scleral icterus, conjunctival injection, periorbital swelling ENT exam: Present: normal exam, normal oropharynx, mucous membranes moist, TM's normal bilaterally, normal external ear exam Neck exam: Present: normal inspection, full ROM. Absent: tenderness, meningismus, lymphadenopathy Respiratory exam: Present: wheezes (Diffuse). Absent: normal lung sounds bilaterally, respiratory distress, rales, rhonchi, stridor Cardiovascular Exam: Present: regular rate, normal rhythm, normal heart sounds. Absent: systolic murmur, diastolic murmur, rubs, gallop, clicks Back exam: Absent: CVA tenderness (R), CVA tenderness (L) Neurological exam: Present: alert Skin exam: Present: warm, dry, intact, normal color. Absent: rash Course Vital Signs 06/30/19 06/30/19 10:05 10:30 Temperature 98.0 F Pulse Rate 90 90 Respiratory 18 Rate Blood Pressure 146/96 O2 Sat by Pulse 99 Oximetry Medical Decision Making - Medical Decision Making 29-year-old male present emergency department with chief complaint of cough congestion. Patient has not been feeling well for a while. Chest x-ray reviewed shows no evidence of infiltrate. Patient will be treated with azithromycin and prednisone, given inhaler at this time. Disposition Clinical Impression: Acute bronchitis with bronchospasm Disposition: HOME SELF-CARE Condition: Stable Instructions (If sedation given, give patient instructions): Acute Bronchitis (ED) Additional Instructions: Please return to the Emergency Department if symptoms worsen or any other concerns. Prescriptions: predniSONE 50 mg PO DAILY #5 tab Albuterol Sulfate [Proair Hfa] 1 - 2 puff INHALATION Q4HR PRN #1 inhaler PRN Reason: difficulty in breathing Azithromycin [Zithromax Z-pack] 0 mg PO DIRECTED #1 pack Is patient prescribed a controlled substance at d/c from ED?: No Referrals: Ye Bach MD [Primary Care Provider] - 1-2 days Time of Disposition: 10:28
--- NOTE | 2019-06-30 10:23 | XR ---
EXAMINATION TYPE: XR chest 2V DATE OF EXAM: 06/30/2019 HISTORY: SOB, cough. REFERENCE: Previous study dated 12/22/2016. FINDINGS: The lungs remain clear. Pleural space are clear. Heart size is within normal limits. IMPRESSION: NO ACUTE CARDIOTHORACIC ABNORMALITY.
[2019-06-30] MEDS ORDERED: cefTRIAXone 1,000 MG VIAL (IM USE) IM STA (10:33)
[2019-06-30 10:52] VITALS: BP 140/88; PULSE 88; RESP 16
== END 2019-06-30 10:51 | disposition home or self-care (01) ==
LOC: EC 10:00
DX: J20.9 Acute bronchitis, unspecified (principal); E78.5 Hyperlipidemia, unspecified; F41.9 Anxiety disorder, unspecified; F32.9 Major depressive disorder, single episode, unspecified; Z79.899 Other long term (current) drug therapy; Z88.0 Allergy status to penicillin; Z88.2 Allergy status to sulfonamides; Z87.891 Personal history of nicotine dependence
CPT/HCPCS: 94640; 71046; 96372; 99283; J0696

== ENCOUNTER 2019-11-11 16:12 | Emergency (ER) | payer OTHER ==
--- NOTE | 2019-11-11 17:17 | ED ---
Back Pain HPI - General Chief Complaint: Back Pain/Injury Stated Complaint: Pain in ribs Time Seen by Provider: 11/11/19 16:34 Source: patient, RN notes reviewed, old records reviewed Limitations: no limitations - History of Present Illness Initial Comments: This is a 29-year-old male DF for evaluation of recurrent right-sided pain and right rib pain. He believes he had a recent fracture secondary to coughing fit the pain is returned no recent injuries. No cough or congestion or shortness of breath no new traumas. Patient is today for evaluation of pain, states the pain is making more difficult for him MD Complaint: back pain (Right sided rib pain) -: days(s) (2) Place: home Radiation: none Severity: moderate Severity scale (1-10): 7 Quality: sharp, stabbing Consistency: constant Improves With: none, immobilization Worsens With: none Context: while lifting, turning/twisting Associated Symptoms: chest pain (no SOB no diaphoresis) - Related Data Home Medications Medication Instructions Recorded Confirmed Atorvastatin [Lipitor] 80 mg PO HS 12/21/16 12/29/17 Escitalopram [Lexapro] 10 mg PO HS 12/21/16 12/29/17 Escitalopram [Lexapro] 20 mg PO HS 12/21/16 12/29/17 QUEtiapine FUMARATE [SEROquel] 50 mg PO HS 12/21/16 12/29/17 QUEtiapine FUMARATE [Seroquel Xr] 300 mg PO HS 12/21/16 12/29/17 busPIRone HCL 7.5 mg PO BID 12/21/16 12/29/17 Gabapentin [Neurontin] 600 mg PO HS 12/08/17 12/29/17 Gabapentin [Neurontin] 300 mg PO TID 12/29/17 12/29/17 Previous Rx's Medication Instructions Recorded Ranitidine HCl [Zantac] 150 mg PO BID #30 tab 12/10/17 Ondansetron Odt [Zofran Odt] 4 mg PO Q8HR PRN #12 tab 12/29/17 Albuterol Sulfate [Proair Hfa] 1 - 2 puff INHALATION Q4HR PRN #1 06/30/19 inhaler Azithromycin [Zithromax Z-pack] 0 mg PO DIRECTED #1 pack 06/30/19 predniSONE 50 mg PO DAILY #5 tab 06/30/19 Allergies Allergy/AdvReac Type Severity Reaction Status Date / Time Penicillins Allergy Anaphylaxis Verified 11/11/19 16:18 Sulfa (Sulfonamide Allergy Rash/Hives Verified 11/11/19 16:18 Antibiotics) sulfamethoxazole Allergy Rash/Hives Verified 11/11/19 16:18 [From Bactrim] trimethoprim [From Bactrim] Allergy Rash/Hives Verified 11/11/19 16:18 Review of Systems ROS Statement: Those systems with pertinent positive or pertinent negative responses have been documented in the HPI. ROS Other: All systems not noted in ROS Statement are negative. 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 History of Any Multi-Drug Resistant Organisms: None Reported Past Surgical History: No Surgical Hx Reported Additional Past Surgical History / Comment(s): [place] teeth removed, right nephrectomy Past Anesthesia/Blood Transfusion Reactions: No Reported Reaction Past Psychological History: Anxiety, Depression Smoking Status: Former smoker Past Alcohol Use History: Occasional Past Drug Use History: None Reported - Past Family History Mother Additional Family Medical History / Comment(s): Gallstones Father Family Medical History: No Reported History General Exam Limitations: no limitations General appearance: alert, in no apparent distress Head exam: Present: atraumatic, normocephalic, normal inspection Eye exam: Present: normal appearance, PERRL, EOMI. Absent: scleral icterus, conjunctival injection, periorbital swelling ENT exam: Present: normal exam, mucous membranes moist Neck exam: Present: normal inspection. Absent: tenderness, meningismus, lymphadenopathy Respiratory exam: Present: normal lung sounds bilaterally. Absent: respiratory distress, wheezes, rales, rhonchi, stridor Cardiovascular Exam: Present: regular rate, normal rhythm, normal heart sounds. Absent: systolic murmur, diastolic murmur, rubs, gallop, clicks GI/Abdominal exam: Present: soft, normal bowel sounds. Absent: distended, tenderness, guarding, rebound, rigid Extremities exam: Present: normal inspection, full ROM, normal capillary refill. Absent: tenderness, pedal edema, joint swelling, calf tenderness Back exam: Present: normal inspection Neurological exam: Present: alert, oriented X3, CN II-XII intact Psychiatric exam: Present: normal affect, normal mood Skin exam: Present: warm, dry, intact, normal color. Absent: rash Course Vital Signs 11/11/19 16:19 Temperature 97.7 F Pulse Rate 91 Respiratory 18 Rate Blood Pressure 143/86 O2 Sat by Pulse 97 Oximetry - Reevaluation(s) Reevaluation #1: 11/11/19 19:01 Medical records reviewed Reevaluation #2: 11/11/19 19:01 Patient symptoms are much improved Medical Decision Making - Medical Decision Making 29 male DF for evaluation of rib pain right-sided rib fracture remote no pneumothorax. Patient will be given pain control can be discharged - Radiology Data Radiology results: report reviewed (X-ray right rib and chest negative for pneumothorax positive for right sixth rib fracture), image reviewed Disposition Clinical Impression: Mechanical back pain, Right rib fracture, Fracture of six ribs of right side Disposition: HOME SELF-CARE Condition: Good Instructions (If sedation given, give patient instructions): Rib Fracture (ED) Is patient prescribed a controlled substance at d/c from ED?: No Referrals: Ye Bach MD [Primary Care Provider] - 1-2 days
[2019-11-11] MEDS ORDERED: HYDROmorphone 1 MG/ML 1 ML SYRINGE IM STA (17:18)
[2019-11-11] MEDS ORDERED: HYDROcodone/APAP 5-325MG 1 EACH TAB PO STA (17:18)
[2019-11-11] MEDS ORDERED: ACETAMINOPHEN TAB 500 MG TAB PO STA (17:18)
[2019-11-11] MEDS ORDERED: ETODOLAC 400 MG TAB PO ONE (18:00)
--- NOTE | 2019-11-11 18:25 | XR ---
EXAMINATION TYPE: XR ribs RT w pa chest xray DATE OF EXAM: 11/11/2019 COMPARISON: Chest x-ray 06/30/2019 HISTORY: Chest pain TECHNIQUE: 5 views FINDINGS: Heart and mediastinum are normal. Lungs are clear of infiltrate. There is no pleural effusi on or pneumothorax. There is apparent callus formation related to healing fracture right posterior se venth rib.. IMPRESSION: Healing right rib fracture. No active cardiopulmonary disease. Normal heart.
[2019-11-11] MEDS ORDERED: ACET/COD 300 MG/30 MG STARTER PACK 6 TAB BTL PO STA (18:51)
[2019-11-11 19:05] VITALS: BP 151/79; PULSE 84; RESP 16; TEMP 97.8
== END 2019-11-11 19:03 | disposition home or self-care (01) ==
LOC: EC 16:12
DX: S22.41XA Multiple fractures of ribs, right side, initial encounter for closed fracture (principal); E78.5 Hyperlipidemia, unspecified; F41.9 Anxiety disorder, unspecified; F32.9 Major depressive disorder, single episode, unspecified; Z79.899 Other long term (current) drug therapy; Z88.0 Allergy status to penicillin; Z88.1 Allergy status to other antibiotic agents; Z88.2 Allergy status to sulfonamides; Z87.891 Personal history of nicotine dependence; X58.XXXA Exposure to other specified factors, initial encounter
CPT/HCPCS: 71101; 99284; 96372; J1170

== ENCOUNTER → 2021-02-26 | Outpatient (CLI) | payer OTHER ==
--- NOTE | 2021-02-27 07:50 | XR ---
EXAMINATION TYPE: XR abdomen 2V DATE OF EXAM: 02/26/2021 CLINICAL HISTORY: Left-sided abdominal pain for months. TECHNIQUE: Supine, upright, and left side down lateral decubitus views of the abdomen are obtained. COMPARISON: None. FINDINGS: Stool and gas are scattered throughout the colon. No dilated loops of large or small bowel to suggest bowel obstruction. There is a moderate amount of stool suggestive of possible constipation . No abnormal calcifications. Lung bases are clear the visualized portions. Osseous structures are un remarkable. IMPRESSION: 1. Nonspecific, nonobstructive bowel gas pattern.
--- NOTE | 2021-02-27 07:56 | XR ---
EXAMINATION TYPE: XR ribs LT w pa chest x-ray DATE OF EXAM: 02/26/2021 COMPARISON: 11/11/2019 HISTORY: Left-sided pain FINDINGS: Heart size is within normal limits. Trachea is midline. No focal consolidation, pneumothora x or pleural effusion. No definite evidence of left rib fracture. IMPRESSION: 1. No acute pulmonary disease. No pneumothorax. No definite evidence of left rib fracture.
== END | disposition home or self-care (01) ==
LOC: RADXRMAIN 16:20
PROVIDERS: ATTEND Pediatrics
DX: R07.81 Pleurodynia (principal); R10.9 Unspecified abdominal pain
CPT/HCPCS: 74019

== ENCOUNTER 2021-03-17 14:25 | Emergency (ER) | payer OTHER ==
[2021-03-17 14:46] VITALS: BP 135/93; PULSE 96; RESP 16; TEMP 97.9
[2021-03-17] MEDS ORDERED: MORPHINE SULFATE 4 MG/ML SYRINGE IV STA (14:58)
[2021-03-17 15:32] LABS: Basophils # (A) 0.1 k/uL (0-0.2); Basophils % (A) 0 %; Eosinophils # (A) 0.2 k/uL (0-0.7); Eosinophils % (A) 2 %; HCT 39.3 % (39.0-53.0); HGB 14.2 gm/dL (13.0-17.5); Lymphocytes # (A) 3.8 k/uL (1.0-4.8); Lymphocytes % (A) 32 %; MCH 31.1 pg (25.0-35.0); MCV 86.4 fL (80.0-100.0); Mean Platelet Volume 7.1; Monocytes # (A) 0.6 k/uL (0-1.0); Monocytes % (A) 5 %; Neutrophils # (A) 7.2 k/uL (1.3-7.7); Neutrophils % (A) 60 %; Platelet Count 410 k/uL (150-450); RBC 4.55 m/uL (4.30-5.90); RDW 12.8 % (11.5-15.5); WBC 11.9 k/uL (3.8-10.6)
[2021-03-17 15:33] LABS: Appearance,Urine Clear (Clear); Bilirubin,Urine Negative (Negative); Blood,Urine Negative (Negative); Color,Urine Yellow; Glucose,Urine (UA) Negative (Negative); Ketones,Urine Negative (Negative); Leukocyte Esterase,Urine Negative (Negative); Nitrite,Urine Negative (Negative); Protein,Urine Trace (Negative); Specific Gravity,Urine 1.024 (1.001-1.035); Urobilinogen,Urine <2.0 mg/dL (<2.0)
--- NOTE | 2021-03-17 15:35 | XR ---
EXAMINATION TYPE: XR lumbar spine 2 or 3V DATE OF EXAM: 03/17/2021 CLINICAL HISTORY: Left-sided back pain TECHNIQUE: Frontal, lateral, and oblique images of the lumbar spine are obtained. COMPARISON: None FINDINGS: There are 5 lumbar type vertebral bodies identified. The lumbar spine shows satisfactory alignment without evidence of acute fracture or dislocation. Vertebral body heights and disk space he ights are within normal limits. The oblique images appear within normal limits. The overlying soft tissue appears unremarkable. IMPRESSION: No acute fracture or dislocation is seen in the lumbar spine.
--- NOTE | 2021-03-17 15:42 | ED ---
Back Pain HPI - General Chief Complaint: Back Pain/Injury Stated Complaint: Back pain Time Seen by Provider: 03/17/21 14:48 Source: patient, family, RN notes reviewed Limitations: no limitations - History of Present Illness Initial Comments: Patient is a 31-year-old male that comes in with left sided back and low back pain. He notes that the pain is also cause some difficulty with urination. He denied any saddle anesthesia decreased bowel movements or difficulty with bowel movements. He noted that he did not recall any injury or trauma to his back. He notes that certain movements do make the pain worse and knows the pain was approximately 8 out of 10 while sitting up in bed during the exam interview. He noted that he can still pass urine he just has to concentrate. He denied chest pain first breath headache nausea vomiting diarrhea constipation fever fatigue chills - Related Data Home Medications Medication Instructions Recorded Confirmed Atorvastatin [Lipitor] 80 mg PO HS 12/21/16 12/29/17 Escitalopram [Lexapro] 10 mg PO HS 12/21/16 12/29/17 Escitalopram [Lexapro] 20 mg PO HS 12/21/16 12/29/17 QUEtiapine FUMARATE [SEROquel] 50 mg PO HS 12/21/16 12/29/17 QUEtiapine FUMARATE [Seroquel Xr] 300 mg PO HS 12/21/16 12/29/17 busPIRone HCL 7.5 mg PO BID 12/21/16 12/29/17 Gabapentin [Neurontin] 600 mg PO HS 12/08/17 12/29/17 Gabapentin [Neurontin] 300 mg PO TID 12/29/17 12/29/17 Previous Rx's Medication Instructions Recorded Ranitidine HCl [Zantac] 150 mg PO BID #30 tab 12/10/17 Ondansetron Odt [Zofran Odt] 4 mg PO Q8HR PRN #12 tab 12/29/17 Albuterol Sulfate [Proair Hfa] 1 - 2 puff INHALATION Q4HR PRN #1 06/30/19 inhaler Azithromycin [Zithromax Z-pack (6 0 mg PO DIRECTED #1 pack 06/30/19 tabs)] predniSONE 50 mg PO DAILY #5 tab 06/30/19 Cyclobenzaprine HCl 10 mg PO TID 10 Days #30 tab 03/17/21 Allergies Allergy/AdvReac Type Severity Reaction Status Date / Time Penicillins Allergy Anaphylaxis Verified 03/17/21 14:43 Sulfa (Sulfonamide Allergy Rash/Hives Verified 03/17/21 14:43 Antibiotics) sulfamethoxazole Allergy Rash/Hives Verified 03/17/21 14:43 [From Bactrim] trimethoprim [From Bactrim] Allergy Rash/Hives Verified 03/17/21 14:43 Review of Systems ROS Statement: Those systems with pertinent positive or pertinent negative responses have been documented in the HPI. ROS Other: All systems not noted in ROS Statement are negative. 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 History of Any Multi-Drug Resistant Organisms: None Reported Past Surgical History: No Surgical Hx Reported Additional Past Surgical History / Comment(s): [place] teeth removed, right nephrectomy Past Anesthesia/Blood Transfusion Reactions: No Reported Reaction Past Psychological History: Anxiety, Depression Smoking Status: Vaper Past Alcohol Use History: Occasional Past Drug Use History: None Reported - Past Family History Mother Additional Family Medical History / Comment(s): Gallstones Father Family Medical History: No Reported History General Exam Limitations: no limitations General appearance: alert, in no apparent distress Head exam: Present: atraumatic, normocephalic, normal inspection Eye exam: Present: normal appearance, PERRL, EOMI. Absent: scleral icterus, conjunctival injection, periorbital swelling Neck exam: Present: normal inspection Respiratory exam: Present: normal lung sounds bilaterally. Absent: respiratory distress, wheezes, rales, rhonchi, stridor Cardiovascular Exam: Present: regular rate, normal rhythm, normal heart sounds. Absent: systolic murmur, diastolic murmur, rubs, gallop, clicks GI/Abdominal exam: Present: soft, normal bowel sounds. Absent: distended, tenderness, guarding, rebound, rigid Rectal exam: Present: normal inspection, normal rectal tone. Absent: hemorrhoids, tenderness Extremities exam: Present: normal inspection, full ROM, normal capillary refill. Absent: tenderness, pedal edema, joint swelling, calf tenderness Back exam: Present: normal inspection, paraspinal tenderness (Left side from mid to low back) Neurological exam: Present: alert, oriented X3 Psychiatric exam: Present: normal affect, normal mood Skin exam: Present: warm, dry, intact, normal color. Absent: rash Course Vital Signs 03/17/21 14:43 Temperature 97.9 F Pulse Rate 96 Respiratory 16 Rate Blood Pressure 135/93 O2 Sat by Pulse 97 Oximetry Medical Decision Making - Medical Decision Making 31-year-old male complaining of mid to low back pain on the left side. Labs, x-ray of the lumbar spine ordered. 4 mg of morphine ordered. Labs unremarkable, x-ray did not show any acute fractures or dislocations. 60 mg and Norflex ordered due to muscle tightness and left sided back. Case discussed with Dr. dugan, patient discharge without primary care. - Lab Data Result diagrams: 03/17/21 15:07 03/17/21 15:07 Lab Results 03/17/21 03/17/21 03/17/21 Range/Units 15:07 15:07 15:07 WBC 11.9 H (3.8-10.6) k/uL RBC 4.55 (4.30-5.90) m/uL Hgb 14.2 (13.0-17.5) gm/dL Hct 39.3 (39.0-53.0) % MCV 86.4 (80.0-100.0) fL MCH 31.1 (25.0-35.0) pg MCHC 36.0 (31.0-37.0) g/dL RDW 12.8 (11.5-15.5) % Plt Count 410 (150-450) k/uL MPV 7.1 Neutrophils % 60 % Lymphocytes % 32 % Monocytes % 5 % Eosinophils % 2 % Basophils % 0 % Neutrophils # 7.2 (1.3-7.7) k/uL Lymphocytes # 3.8 (1.0-4.8) k/uL Monocytes # 0.6 (0-1.0) k/uL Eosinophils # 0.2 (0-0.7) k/uL Basophils # 0.1 (0-0.2) k/uL Sodium 139 (137-145) mmol/L Potassium 4.6 (3.5-5.1) mmol/L Chloride 105 (98-107) mmol/L Carbon Dioxide 25 (22-30) mmol/L Anion Gap 9 mmol/L BUN 19 (9-20) mg/dL Creatinine 1.13 (0.66-1.25) mg/dL Est GFR (CKD-EPI)AfAm >90 (>60 ml/min/1.73 sqM) Est GFR (CKD-EPI)NonAf 85 (>60 ml/min/1.73 sqM) Glucose 108 H (74-99) mg/dL Calcium 9.5 (8.4-10.2) mg/dL Total Bilirubin 0.4 (0.2-1.3) mg/dL AST 39 (17-59) U/L ALT 64 H (4-49) U/L Alkaline Phosphatase 118 (38-126) U/L Total Protein 7.4 (6.3-8.2) g/dL Albumin 4.8 (3.5-5.0) g/dL Urine Color Yellow Urine Appearance Clear (Clear) Urine pH 6.0 (5.0-8.0) Ur Specific [place] 1.024 (1.001-1.035) Urine Protein Trace H (Negative) Urine Glucose (UA) Negative (Negative) Urine Ketones Negative (Negative) Urine Blood Negative (Negative) Urine Nitrite Negative (Negative) Urine Bilirubin Negative (Negative) Urine Urobilinogen <2.0 (<2.0) mg/dL Ur Leukocyte Esterase Negative (Negative) - Radiology Data Radiology results: report reviewed, image reviewed X-ray of the lumbar spine: No acute fracture dislocation is seen lumbar spine. Disposition Clinical Impression: Strain of lumbar region, Mid back pain Disposition: HOME SELF-CARE Condition: Stable Additional Instructions: Please return to the Emergency Department if symptoms worsen or any other concerns. Follow-up primary care as needed. Take Flexeril as prescribed. Avoid any shortness movement or activity. Urologist as needed. Is patient prescribed a controlled substance at d/c from ED?: No Referrals: Ye Bach MD [Primary Care Provider] - 1-2 days Gorge Kate MD [STAFF PHYSICIAN] - 1-2 days Time of Disposition: 16:16
[2021-03-17] MEDS ORDERED: ORPHENADRINE 30 MG/ML 2 ML VIAL IVP STA (15:55)
[2021-03-17 15:56] LABS: ALT 64 U/L (4-49); AST 39 U/L (17-59); African American GFR (CKD) >90 (>60 ml/min/1.73 sqM); Albumin 4.8 g/dL (3.5-5.0); Alkaline Phosphatase 118 U/L (38-126); Anion Gap 9 mmol/L; Blood Urea Nitrogen 19 mg/dL (9-20); Calcium 9.5 mg/dL (8.4-10.2); Carbon Dioxide 25 mmol/L (22-30); Chloride 105 mmol/L (98-107); Glucose 108 mg/dL (74-99); Non-African American GFR(CKD) 85 (>60 ml/min/1.73 sqM); Potassium 4.6 mmol/L (3.5-5.1); Sodium 139 mmol/L (137-145); Total Bilirubin 0.4 mg/dL (0.2-1.3); Total Protein 7.4 g/dL (6.3-8.2)
== END 2021-03-17 16:54 | disposition home or self-care (01) ==
LOC: EC 14:25
DX: S39.012A Strain of muscle, fascia and tendon of lower back, initial encounter (principal); M54.6 Pain in thoracic spine; R39.198 Other difficulties with micturition; E78.5 Hyperlipidemia, unspecified; F32.9 Major depressive disorder, single episode, unspecified; F41.9 Anxiety disorder, unspecified; F17.290 Nicotine dependence, other tobacco product, uncomplicated; Z79.52 Long term (current) use of systemic steroids; Z88.0 Allergy status to penicillin; Z88.1 Allergy status to other antibiotic agents; Z88.2 Allergy status to sulfonamides; X58.XXXA Exposure to other specified factors, initial encounter
CPT/HCPCS: 36415; 80053; 85025; 81003; 72100; 99283; 96374; 96375; J2270; J2360

== ENCOUNTER 2022-12-08 18:12 | Emergency (ER) | payer BC, OTHER ==
[2022-12-08 18:55] VITALS: BP 146/85; PULSE 75; RESP 20; TEMP 98.1
--- NOTE | 2022-12-08 19:19 | ED ---
Lower Extremity Injury HPI - General Chief Complaint: Extremity Injury, Lower Stated Complaint: right knee injury Time Seen by Provider: 12/08/22 18:56 Source: patient, RN notes reviewed Mode of arrival: wheelchair Limitations: no limitations - History of Present Illness Initial Comments: 32-year-old male presents emergency Department chief complaint right knee injury. Patient states that he slipped on some ice last night going into his garage. Patient states he fell directly onto his right knee states he has an abrasion, swelling and pain. His tetanus is up-to-date. Denies paresthesias no head injury no loss conscious. - Related Data Home Medications Medication Instructions Recorded Confirmed Atorvastatin [Lipitor] 80 mg PO HS 12/21/16 12/29/17 Escitalopram [Lexapro] 10 mg PO HS 12/21/16 12/29/17 Escitalopram [Lexapro] 20 mg PO HS 12/21/16 12/29/17 QUEtiapine FUMARATE [SEROquel] 50 mg PO HS 12/21/16 12/29/17 QUEtiapine FUMARATE [Seroquel Xr] 300 mg PO HS 12/21/16 12/29/17 busPIRone HCL 7.5 mg PO BID 12/21/16 12/29/17 Gabapentin [Neurontin] 600 mg PO HS 12/08/17 12/29/17 Gabapentin [Neurontin] 300 mg PO TID 12/29/17 12/29/17 Previous Rx's Medication Instructions Recorded Ranitidine HCl [Zantac] 150 mg PO BID #30 tab 12/10/17 Ondansetron Odt [Zofran Odt] 4 mg PO Q8HR PRN #12 tab 12/29/17 Albuterol Sulfate [Proair Hfa] 1 - 2 puff INHALATION Q4HR PRN #1 06/30/19 inhaler Azithromycin [Zithromax Z-pack (6 0 mg PO DIRECTED #1 pack 06/30/19 tabs)] predniSONE 50 mg PO DAILY #5 tab 06/30/19 Cyclobenzaprine HCl 10 mg PO TID 10 Days #30 tab 03/17/21 Allergies Allergy/AdvReac Type Severity Reaction Status Date / Time Penicillins Allergy Anaphylaxis Verified 12/08/22 18:55 Sulfa (Sulfonamide Allergy Rash/Hives Verified 12/08/22 18:55 Antibiotics) sulfamethoxazole Allergy Rash/Hives Verified 12/08/22 18:55 [From Bactrim] trimethoprim [From Bactrim] Allergy Rash/Hives Verified 12/08/22 18:55 Review of Systems ROS Statement: Those systems with pertinent positive or pertinent negative responses have been documented in the HPI. ROS Other: All systems not noted in ROS Statement are negative. 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 History of Any Multi-Drug Resistant Organisms: None Reported Past Surgical History: No Surgical Hx Reported Additional Past Surgical History / Comment(s): [place] teeth removed, right nephrectomy Past Anesthesia/Blood Transfusion Reactions: No Reported Reaction Past Psychological History: Anxiety, Depression Smoking Status: Vaper Past Alcohol Use History: Occasional Past Drug Use History: None Reported - Past Family History Mother Additional Family Medical History / Comment(s): Gallstones Father Family Medical History: No Reported History General Exam Limitations: no limitations General appearance: alert, in no apparent distress Head exam: Present: atraumatic, normocephalic, normal inspection Eye exam: Present: normal appearance, PERRL, EOMI. Absent: scleral icterus, conjunctival injection, periorbital swelling Neck exam: Present: normal inspection, full ROM. Absent: tenderness, meningismus, lymphadenopathy Respiratory exam: Present: normal lung sounds bilaterally. Absent: respiratory distress, wheezes, rales, rhonchi, stridor Cardiovascular Exam: Present: regular rate, normal rhythm, normal heart sounds. Absent: systolic murmur, diastolic murmur, rubs, gallop, clicks Extremities exam: Present: other (Right knee there is an abrasion, ecchymosis and swelling noted, pain with range of motion pain with palpation over the patella, no tenderness above or below the right knee.) Course Vital Signs 12/08/22 18:52 Temperature 98.1 F Pulse Rate 75 Respiratory 20 Rate Blood Pressure 146/85 O2 Sat by Pulse 98 Oximetry Medical Decision Making - Medical Decision Making Was pt. sent in by a medical professional or institution (, PA, WHEEL BUFFER, urgent care, hospital, or penitentiary...) When possible be specific @ -No Did you speak to anyone other than the patient for history (EMS, parent, family, police, friend...)? What history was obtained from this source @ -No Did you review nursing and triage notes (agree or disagree)? Why? @ -I reviewed and agree with nursing and triage notes Were old charts reviewed (outside hosp., previous admission, EMS record, old EKG , old radiological studies, urgent care reports/EKG's, penitentiary records)? Report findings @ -No old charts were reviewed Differential Diagnosis (chest pain, altered mental status, abdominal pain women, abdominal pain men, vaginal bleeding, weakness, fever, dyspnea, syncope, headache, dizziness, GI bleed, back pain, seizure, CVA, palpatations, mental health, musculoskeletal)? @ - patella fracture, right knee contusion, right knee sprain, right knee effusion EKG interpreted by me (3pts min.). @ -[none X-rays interpreted by me (1pt min.). @ -X-ray right knee no acute fracture CT interpreted by me (1pt min.). @ -None done U/S interpreted by me (1pt. min.). @ -None done What testing was considered but not performed or refused? (CT, X-rays, U/S, labs)? Why? @ -None What meds were considered but not given or refused? Why? @ -None Did you discuss the management of the patient with other professionals (professionals i.e. , PA, WHEEL BUFFER, lab, RT, psych nurse, social service technician, cartridge loader, teacher, correctional security officer, case coordinator)? Give summary @ -No Was smoking cessation discussed for >3mins.? @ -No Was critical care preformed (if so, how long)? @ -No Were there social determinants of health that impacted care today? How? (Homelessness, low income, unemployed, alcoholism, drug addiction, transportation, low edu. Level, literacy, decrease access to med. care, group home, rehab)? @ -No Was there de-escalation of care discussed even if they declined (Discuss DNR or withdrawal of care, Hospice)? DNR status @ -No What co-morbidities impacted this encounter? (DM, HTN, Smoking, COPD, CAD, Cancer, CVA, ARF, Chemo, Hep., AIDS, mental health diagnosis, sleep apnea, morbid obesity)? @ -None Was patient admitted / discharged? Hospital course, mention meds given and route, prescriptions, significant lab abnormalities, going to OR and other pertinent info. @ -Discharge patient has a right knee contusion, no acute fracture on x-ray patient was discharged in stable condition Undiagnosed new problem with uncertain prognosis? @ -No Drug Therapy requiring intensive monitoring for toxicity (Heparin, Nitro, Insulin, Cardizem)? @ -No Were any procedures done? @ -No Diagnosis/symptom? @ -Right knee contusion Acute, or Chronic, or Acute on Chronic? @ -Acute Uncomplicated (without systemic symptoms) or Complicated (systemic symptoms)? @ -Uncomplicated Side effects of treatment? @ -No Exacerbation, Progression, or Severe Exacerbation? @ -No Poses a threat to life or bodily function? How? (Chest pain, [place], [place], pneumonia, PE, COPD, DKA, ARF, appy, cholecystitis, CVA, Diverticulitis, Homicidal, Suicidal, threat to staff... and all critical care pts) @ -No Disposition Clinical Impression: Fall, Contusion of right knee Disposition: HOME SELF-CARE Condition: Stable Instructions (If sedation given, give patient instructions): Knee Pain (ED) Additional Instructions: Please return to the Emergency Department if symptoms worsen or any other concerns. Is patient prescribed a controlled substance at d/c from ED?: No Referrals: Ye Bach MD [Primary Care Provider] - 1-2 days Time of Disposition: 20:35
--- NOTE | 2022-12-08 20:00 | XR ---
EXAMINATION TYPE: XR knee 4V RT DATE OF EXAM: 12/08/2022 COMPARISON: NONE HISTORY: Pain TECHNIQUE: 4 views FINDINGS: There is no evidence of fracture nor dislocation. Joint spaces are normal. No sign of knee joint effusion. IMPRESSION: Negative right knee exam. No fracture seen.
[2022-12-08] MEDS ORDERED: ACET/COD 300 MG/30 MG STARTER PACK 6 TAB BTL PO STA (20:35)
== END 2022-12-08 20:51 | disposition home or self-care (01) ==
LOC: EC 18:12
DX: S80.01XA Contusion of right knee, initial encounter (principal); E78.5 Hyperlipidemia, unspecified; F41.9 Anxiety disorder, unspecified; F32.A Depression, unspecified; F17.290 Nicotine dependence, other tobacco product, uncomplicated; Z88.0 Allergy status to penicillin; Z88.2 Allergy status to sulfonamides; Z79.899 Other long term (current) drug therapy; W00.0XXA Fall on same level due to ice and snow, initial encounter
CPT/HCPCS: 99283

== ENCOUNTER 2024-09-21 14:28 | Emergency (ER) | payer BC, OTHER ==
--- NOTE | 2024-09-21 14:52 | ED ---
Dizziness HPI - General Source: patient, RN notes reviewed Mode of arrival: ambulatory Limitations: no limitations <Jolly Edwards - Last Filed: 09/21/24 14:51> <Cortney Ya - Last Filed: 09/21/24 23:04> - General Chief Complaint: Dizziness Stated Complaint: Syncope Time Seen by Provider: 09/21/24 14:51 - History of Present Illness Initial Comments: Quick note: 34-year-old male presented the ER for evaluation of bodyaches, pain and fatigue onset yesterday. Patient states today while changing positions he s tarted to feel dizzy and believes he lost consciousness. Patient currently is complaining of a "foggy head". (Jolly Edwards) Patient is a 34-year-old gentleman presenting for fatigue, body aches and malaise that began on Tuesday. Has had decreased intake. States yesterday b ecame lightheaded while walking and had a syncopal episode. Did not hit his head thinks he may be unconscious for 5 to 10 seconds. This has happened previously when he has become dehydrated. Does not have documented history of seizures and does not think he had a seizure, denies tongue biting or urinary incontinence. Denies family history of sudden cardiac . He currently denies any fevers, chest pain, shortness of breath, difficulty breathing, nausea, vomiting, diarrhea, abdominal pain, changes in vision. Does state he has had a mild nonproductive cough. (Cortney Ya) - Related Data Home Medications Medication Instructions Recorded Confirmed Atorvastatin [Lipitor] 80 mg PO HS 12/21/16 12/29/17 Escitalopram [Lexapro] 10 mg PO HS 12/21/16 12/29/17 Escitalopram [Lexapro] 20 mg PO HS 12/21/16 12/29/17 QUEtiapine FUMARATE [SEROquel] 50 mg PO HS 12/21/16 12/29/17 QUEtiapine FUMARATE [Seroquel Xr] 300 mg PO HS 12/21/16 12/29/17 busPIRone HCL 7.5 mg PO BID 12/21/16 12/29/17 Gabapentin [Neurontin] 600 mg PO HS 12/08/17 12/29/17 Gabapentin [Neurontin] 300 mg PO TID 04/05/18 04/05/18 Previous Rx's Medication Instructions Recorded Ranitidine HCl [Zantac] 150 mg PO BID #30 tab 12/10/17 Ondansetron Odt [Zofran Odt] 4 mg PO Q8HR PRN #12 tab 12/29/17 Albuterol Sulfate [Proair Hfa] 1 - 2 puff INHALATION Q4HR PRN #1 06/30/19 inhaler Azithromycin [Zithromax Z-pack (6 0 mg PO DIRECTED #1 pack 06/30/19 tabs)] predniSONE 50 mg PO DAILY #5 tab 06/30/19 Cyclobenzaprine HCl 10 mg PO TID 10 Days #30 tab 03/17/21 Allergies Allergy/AdvReac Type Severity Reaction Status Date / Time Penicillins Allergy Anaphylaxis Verified 12/08/22 18:55 Sulfa (Sulfonamide Allergy Rash/Hives Verified 12/08/22 18:55 Antibiotics) sulfamethoxazole Allergy Rash/Hives Verified 12/08/22 18:55 [From Bactrim] trimethoprim [From Bactrim] Allergy Rash/Hives Verified 12/08/22 18:55 Review of Systems ROS Other: All systems not noted in ROS Statement are negative. <Jolly Edwards - Last Filed: 09/21/24 14:51> ROS Other: All systems not noted in ROS Statement are negative. Constitutional: Reports: other (malaise). Denies: fever, chills Eyes: Denies: vision change ENT: Denies: throat pain Cardiovascular: Reports: syncope. Denies: chest pain Endocrine: Reports: fatigue Gastrointestinal: Denies: abdominal pain, nausea, vomiting, diarrhea Musculoskeletal: Reports: myalgia Neurological: Reports: weakness (generalized). Denies: headache, numbness <Cortney Ya - Last Filed: 09/21/24 23:04> ROS Statement: Those systems with pertinent positive or pertinent negative responses have been documented in the HPI. 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 History of Any Multi-Drug Resistant Organisms: None Reported Past Surgical History: No Surgical Hx Reported Additional Past Surgical History / Comment(s): [place] teeth removed, right nephrectomy Past Anesthesia/Blood Transfusion Reactions: No Reported Reaction Past Psychological History: Anxiety, Depression Smoking Status: Vaper Past Alcohol Use History: Occasional Past Drug Use History: None Reported - Past Family History Mother Additional Family Medical History / Comment(s): Gallstones Father Family Medical History: No Reported History <GraceJolly - Last Filed: 09/21/24 14:51> General Exam Limitations: no limitations <Jolly Edwards - Last Filed: 09/21/24 14:51> <Cortney Ya - Last Filed: 09/21/24 23:04> - General Exam Comments Initial Comments: Visual Physical Exam Vital signs reviewed General: Well-appearing, nontoxic, no acute distress. Head: Normocephalic, atraumatic Eyes: PERRLA, EOMI ENT: Airway patent Chest: Nonlabored breathing Skin: No visual rash, normal skin tone Neuro: Alert and oriented 3 Musculoskeletal: No gross abnormalities (Jolly Edwards) PE: CONSTITUTIONAL: [no apparent distress, well appearing] SKIN: [warm, dry, no jaundice, hives or petechiae] EYES:[ pupils are equally round, extraocular movements intact without nystagmus, clear conjunctiva, non-icteric sclera] HENT: [normocephalic, atraumatic, moist mucus membranes, oropharynx clear without exudates] NECK: , [Full range of motion, normal appearance] PULMONARY: [clear to auscultation without wheezes, rhonchi, or rales, normal excursion, no accessory muscle use and no stridor] CARDIOVASCULAR:[ regular rate, rhythm, normal S1 and S2. No appreciated murmurs, rubs or gallops. Strong radial pulses with intact distal perfusion. No lower extremity edema] GASTROINTESTINAL: [soft, active bowel sounds throughout, non-tender, non- distended, no palpable masses, no rebound or guarding. No hepatosplenomegaly] GENITOURINARY: MUSCULOSKELETAL: [Extremities have no gross deformity, no edema, redness, or swelling. No calf swelling ] NEUROLOGIC: [_a/o x 3, GCS 15, normal mentation and speech. Moves all extremities x 4 without motor or sensory deficit cranial nerves: II (visual gil without defects), III, IV and (extraocular movements are intact, pup ils are equal with normal reaction to light), V (intact facial sensation and jaw opening), VII (no facial droop), IX and X (normal palate movement, midline uvula, normal voice), XI (symmetrical shoulder shrug and lateral head rotation against resistance), XII (midline tongue protrusion). Motor strength is 5/5 in all extremities. No abnormal movements. Normal muscle tone. Sensation to light touch is intact bilaterally. No cerebellar signs ([id number], kvlw-[id number], and rapid alternating movements are normal)] PSYCHIATRIC:[ _normal mood and affect, thought process is clear and linear] (Cortney Ya) Course Vital Signs 09/21/24 09/21/24 09/21/24 14:36 18:54 20:34 Temperature 99.3 F 99 F 98.3 F Pulse Rate 84 88 88 Respiratory 16 16 12 Rate Blood Pressure 121/85 129/80 155/89 O2 Sat by Pulse 98 96 98 Oximetry EKG Findings - EKG Comments: EKG Findings:: Sinus rhythm, rate 85 bpm, MN interval 160 ms QRS duration 95 ms, QT/QTc 355/398 ms, normal EKG, no STEMI no arrythmia No delta wave, no brugada pattern <Cortney Ya - Last Filed: 09/21/24 23:04> Medical Decision Making <Jolly Edwards - Last Filed: 09/21/24 14:51> - Lab Data Result diagrams: 09/21/24 14:56 09/21/24 14:56 <Cortney Ya - Last Filed: 09/21/24 23:04> - Medical Decision Making I performed the quick note portion of this chart. Electronically signed by Jolly Edwards PA-C (Jolly Edwards) Was pt. sent in by a medical professional or institution (PATRICIA [facility]ie, MULTIPLE SCLEROSIS NURSE, urgent care, hospital, or assisted...) When possible be specific @ -[No] Did you speak to anyone other than the patient for history (EMS, parent, family, police, friend...)? What history was obtained from this source @ -[No] Did you review nursing and triage notes (agree or disagree)? Why? @ -[I reviewed and agree with nursing and triage notes] Were old charts reviewed (outside hosp., previous admission, EMS record, old EKG, old radiological studies, urgent care reports/EKG's, assisted records)? Report findings @ -[No old charts were reviewed] Differential Diagnosis (chest pain, altered mental status, abdominal pain women, abdominal pain men, vaginal bleeding, weakness, fever, dyspnea, syncope, headache, dizziness, GI bleed, back pain, seizure, CVA, palpatations, mental health, musculoskeletal)? @ -[not applicable] EKG interpreted by me (3pts min.). @ -[As above] X-rays interpreted by me (1pt min.). @ -[None done] CT interpreted by me (1pt min.). @ -[None done] U/S interpreted by me (1pt. min.). @ -[None done] What testing was considered but not performed or refused? (CT, X-rays, U/S, labs)? Why? @ -[None] What meds were considered but not given or refused? Why? @ -[None] Did you discuss the management of the patient with other professionals (professionals i.e. , PA, MULTIPLE SCLEROSIS NURSE, lab, RT, psych nurse, home health care social worker, drafter automotive design layout, teacher, correctional officer, social work case manager)? Give summary @ -[No] Was smoking cessation discussed for >3mins.? @ -[No] Was critical care preformed (if so, how long)? @ -[No] Were there social determinants of health that impacted care today? How? (Homelessness, low income, unemployed, alcoholism, drug addiction, transportation, low edu. Level, literacy, decrease access to med. care, half-way, rehab)? @ -[No] Was there de-escalation of care discussed even if they declined (Discuss DNR or withdrawal of care, Hospice)? @ -[No] What co-morbidities impacted this encounter? (DM, HTN, Smoking, COPD, CAD, Cancer, CVA, ARF, Chemo, Hep., AIDS, mental health diagnosis, sleep apnea, morbid obesity)? @ -[None] Was patient admitted / discharged? Hospital course, mention meds given and route, prescriptions, significant lab abnormalities, going to OR and other pert inent info. @ -[hospital course] patient is a 34-year-old gentleman presenting today for 4 days of malaise, myalgias fatigue and 2 days of lightheadedness with a syncopal episode yesterday. Initial labs and orders placed as part of triage protocol. Patient is influenza A positive. On my assessment he is well-appearing and in no acute distress. Chest x-ray is added to workup due to syncopal episode though I suspect secondary to volume depletion. Otherwise labs are reassuring. Discussed with patient plan for IV fluids, Toradol for body aches anticipated discharge. Patient agreeable plan of care. Of note patient's LFTs were slightly elevated, states that this is not a new issue for him. He is taking NyQuil every 4 hours so Tylenol level was drawn which was negative. In my medical judgment there is currently no evidence of an immediate life- threatening or surgical condition. Discharge is therefore indicated at this time. [Discharge treatment instructions, follow up instructions, and appropriate emergency department return precautions were discussed with the patient and/or m edical decision maker. Patient and/or medical decision maker expressed understanding of and agreed with the treatment plan, follow up instructions, and emergency department return precaution. All patient's and/or medical decision maker's questions were answered.] [The patient was advised that a small risk still exists that a serious condition could develop and was therefore instructed to return to the ED for any changes in symptoms, persistent symptoms, inability to obtain proper follow-up or for any further concerns. Patient received verbal and written instructions for this condition.] Undiagnosed new problem with uncertain prognosis? @ -[No] Drug Therapy requiring intensive monitoring for toxicity (Heparin, Nitro, Insulin, Cardizem)? @ -[No] Were any procedures done? @ -[No] Diagnosis/symptom? @ -Syncope, influenza A Acute, or Chronic, or Acute on Chronic? @ -Acute Uncomplicated (without systemic symptoms) or Complicated (systemic symptoms)? @ -Complicated Side effects of treatment? @ -[No] Exacerbation, Progression, or Severe Exacerbation? @ -[No] Poses a threat to life or bodily function? How? (Chest pain, [place], [place], pneumonia, PE, COPD, DKA, ARF, appy, cholecystitis, CVA, Diverticulitis, Homicidal, Suicidal, threat to staff... and all critical care pts) @ -[No] (Cortney Ya) - Lab Data Lab Results 09/21/24 09/21/24 09/21/24 Range/Units 14:56 14:56 14:56 WBC 5.5 (3.8-10.6) k/uL RBC 5.07 (4.30-5.90) m/uL Hgb 15.8 (13.0-17.5) gm/dL Hct 44.8 (39.0-53.0) % MCV 88.4 (80.0-100.0) fL MCH 31.2 (25.0-35.0) pg MCHC 35.3 (31.0-37.0) g/dL RDW 12.0 (11.5-15.5) % Plt Count 288 (150-450) k/uL MPV 7.5 Neutrophils % 70 % Lymphocytes % 22 % Monocytes % 6 % Eosinophils % 0 % Basophils % 0 % Neutrophils # 3.8 (1.3-7.7) k/uL Lymphocytes # 1.2 (1.0-4.8) k/uL Monocytes # 0.4 (0-1.0) k/uL Eosinophils # 0.0 (0-0.7) k/uL Basophils # 0.0 (0-0.2) k/uL PT 11.0 (10.0-12.5) sec INR 1.0 (<1.2) APTT 23.4 (22.0-30.0) sec Sodium 137 (137-145) mmol/L Potassium 4.1 (3.5-5.1) mmol/L Chloride 104 (98-107) mmol/L Carbon Dioxide 20 L (22-30) mmol/L Anion Gap 13 mmol/L BUN 15 (9-20) mg/dL Creatinine 1.09 (0.66-1.25) mg/dL Est GFR (CKD-EPI)AfAm >90 (>60 ml/min/1.73 sqM) Est GFR (CKD-EPI)NonAf 87 (>60 ml/min/1.73 sqM) Glucose 93 (74-99) mg/dL Calcium 9.7 (8.4-10.2) mg/dL Magnesium 2.1 (1.6-2.3) mg/dL Total Bilirubin 0.7 (0.2-1.3) mg/dL AST 114 H (17-59) U/L ALT 183 H (4-49) U/L Alkaline Phosphatase 78 (38-126) U/L Troponin I (0.000-0.034) ng/mL Total Protein 7.7 (6.3-8.2) g/dL Albumin 4.9 (3.5-5.0) g/dL Acetaminophen ug/mL Influenza Type A (PCR) (Not Detectd) Influenza Type B (PCR) (Not Detectd) RSV (PCR) (Not Detectd) SARS-CoV-2 (PCR) (Not Detectd) 09/21/24 09/21/24 09/21/24 Range/Units 14:56 14:56 Unknown WBC (3.8-10.6) k/uL RBC (4.30-5.90) m/uL Hgb (13.0-17.5) gm/dL Hct (39.0-53.0) % MCV (80.0-100.0) fL MCH (25.0-35.0) pg MCHC (31.0-37.0) g/dL RDW (11.5-15.5) % Plt Count (150-450) k/uL MPV Neutrophils % % Lymphocytes % % Monocytes % % Eosinophils % % Basophils % % Neutrophils # (1.3-7.7) k/uL Lymphocytes # (1.0-4.8) k/uL Monocytes # (0-1.0) k/uL Eosinophils # (0-0.7) k/uL Basophils # (0-0.2) k/uL PT (10.0-12.5) sec INR (<1.2) APTT (22.0-30.0) sec Sodium (137-145) mmol/L Potassium (3.5-5.1) mmol/L Chloride (98-107) mmol/L Carbon Dioxide (22-30) mmol/L Anion Gap mmol/L BUN (9-20) mg/dL Creatinine (0.66-1.25) mg/dL Est GFR (CKD-EPI)AfAm (>60 ml/min/1.73 sqM) Est GFR (CKD-EPI)NonAf (>60 ml/min/1.73 sqM) Glucose (74-99) mg/dL Calcium (8.4-10.2) mg/dL Magnesium (1.6-2.3) mg/dL Total Bilirubin (0.2-1.3) mg/dL AST (17-59) U/L ALT (4-49) U/L Alkaline Phosphatase (38-126) U/L Troponin I <0.012 (0.000-0.034) ng/mL Total Protein (6.3-8.2) g/dL Albumin (3.5-5.0) g/dL Acetaminophen <10.0 ug/mL Influenza Type A (PCR) Detected A (Not Detectd) Influenza Type B (PCR) Not Detected (Not Detectd) RSV (PCR) Not Detected (Not Detectd) SARS-CoV-2 (PCR) Not Detected (Not Detectd) Disposition <Jolly Edwards - Last Filed: 09/21/24 14:51> Is patient prescribed a controlled substance at d/c from ED?: No <Cortney Ya - Last Filed: 09/21/24 23:04> Clinical Impression: Syncope, Influenza A, Elevated LFTs Disposition: HOME SELF-CARE Condition: Good Instructions (If sedation given, give patient instructions): Influenza (ED) Additional Instructions: Every disease is a spectrum and a small chance still exists that a serious condition could develop, for this reason, please monitor yourself closely for new, changing or worsening symptoms, symptoms that persist beyond another 48 hours, further episodes of passing out, fever for more than 5 days inability to tolerate/keep down fluids or your medications, inability to follow up with outpatient providers as instructed and should you experience these symptoms or should you have any further concerns for your wellbeing please return to the ED or call 911 immediately. Please drink plenty of fluids and get plenty of rest [facility] law states that you are unable to drive or operate heavy machinery for 6 months after seizure or syncopal event. Please follow-up with your PCP for clearance. PLEASE call your primary care physician as soon as possible to arrange / discuss plan for followup appointment. Appointment in the next 1-3 days is strongly encouraged if possible. PLEASE let us know here before you leave if there is anything further we can do to be of any assistance. Take care and feel Better! Referrals: Ye Bach MD [Primary Care Provider] - 1-2 days
[2024-09-21 15:17] LABS: Basophils % (A) 0 %; Eosinophils % (A) 0 %; HCT 44.8 % (39.0-53.0); HGB 15.8 gm/dL (13.0-17.5); Lymphocytes # (A) 1.2 k/uL (1.0-4.8); Lymphocytes % (A) 22 %; MCH 31.2 pg (25.0-35.0); MCHC 35.3 g/dL (31.0-37.0); MCV 88.4 fL (80.0-100.0); Mean Platelet Volume 7.5; Monocytes # (A) 0.4 k/uL (0-1.0); Monocytes % (A) 6 %; Neutrophils # (A) 3.8 k/uL (1.3-7.7); Neutrophils % (A) 70 %; Platelet Count 288 k/uL (150-450); RBC 5.07 m/uL (4.30-5.90); WBC 5.5 k/uL (3.8-10.6)
[2024-09-21 15:29] LABS: ALT 183 U/L (4-49); AST 114 U/L (17-59); African American GFR (CKD) >90 (>60 ml/min/1.73 sqM); Albumin 4.9 g/dL (3.5-5.0); Alkaline Phosphatase 78 U/L (38-126); Anion Gap 13 mmol/L; Blood Urea Nitrogen 15 mg/dL (9-20); Calcium 9.7 mg/dL (8.4-10.2); Carbon Dioxide 20 mmol/L (22-30); Chloride 104 mmol/L (98-107); Glucose 93 mg/dL (74-99); Magnesium 2.1 mg/dL (1.6-2.3); Non-African American GFR(CKD) 87 (>60 ml/min/1.73 sqM); Potassium 4.1 mmol/L (3.5-5.1); Sodium 137 mmol/L (137-145); Total Bilirubin 0.7 mg/dL (0.2-1.3); Total Protein 7.7 g/dL (6.3-8.2)
[2024-09-21 15:35] LABS: Partial Thromboplastin Time 23.4 sec (22.0-30.0)
[2024-09-21] MEDS: SODIUM CHLORIDE 0.9% 1,000 ML IV ONE ×2 (18:02→18:44)
[2024-09-21] MEDS: KETOROLAC 15 MG/ML 1 ML VIAL IVP STA (18:43)
[2024-09-21 18:55] VITALS: PULSE 88
--- NOTE | 2024-09-21 19:07 | XR ---
EXAMINATION TYPE: XR chest 2V DATE OF EXAM: 09/21/2024 7:04 PM COMPARISON: Previous chest radiograph 03/25/2021. CLINICAL INDICATION: Male, 34 years old with history of syncope; [facility] TECHNIQUE: XR chest 2V Frontal and lateral views of the chest. FINDINGS: Lungs/Pleura: There is no evidence of pleural effusion, focal consolidation, or pneumothorax. Pulmonary vascularity: Unremarkable. Heart/mediastinum: Cardiomediastinal silhouette is unremarkable. Musculoskeletal: No acute osseous pathology. Other findings: None IMPRESSION: No acute cardiopulmonary disease/process. [facility], , 09/21/2024 7:05 PM
[2024-09-21 20:35] VITALS: BP 155/89; RESP 12; TEMP 98.3
== END 2024-09-21 20:35 | disposition home or self-care (01) ==
LOC: EC 14:28
DX: J10.1 Influenza due to other identified influenza virus with other respiratory manifestations (principal); R55 Syncope and collapse; R74.01 Elevation of levels of liver transaminase levels; F17.290 Nicotine dependence, other tobacco product, uncomplicated; Z88.0 Allergy status to penicillin; Z88.2 Allergy status to sulfonamides
CPT/HCPCS: 36415; 93005; 80053; 83735; 84484; 85025; 85610; 85730; 80143; 87636; 71046; 99284; 96374; 96361 ×3; J1885